=== PATIENT | female | born 1935 | race Caucasian/White ===

== ENCOUNTER 2018-08-20 14:14 | Emergency (ER) | payer MEDICARE ==
[~2018-08-20] VITALS: Ht 167.6 cm; Wt 50.3 kg
== END 2018-08-20 16:02 | disposition home or self-care (01) ==
LOC: ED 14:14
DX: S41.112A Laceration without foreign body of left upper arm, initial encounter (principal); R03.0 Elevated blood-pressure reading, without diagnosis of hypertension; W19.XXXA Unspecified fall, initial encounter; Y93.89 Activity, other specified; Y92.009 Unspecified place in unspecified non-institutional (private) residence as the place of occurrence of the external cause; Y99.8 Other external cause status

== ENCOUNTER → 2018-09-01 | Outpatient (CLI) | payer MEDICARE | END | disposition home or self-care (01) | LOC: WOUNDCARE 14:26 | DX: S41.112D Laceration without foreign body of left upper arm, subsequent encounter (principal); I10 Essential (primary) hypertension; E78.00 Pure hypercholesterolemia, unspecified; E07.9 Disorder of thyroid, unspecified; F32.9 Major depressive disorder, single episode, unspecified; F03.90 Unspecified dementia, unspecified severity, without behavioral disturbance, psychotic disturbance, mood disturbance, and anxiety; Z87.891 Personal history of nicotine dependence; W19.XXXD Unspecified fall, subsequent encounter ==

== ENCOUNTER 2018-10-14 12:49 | Emergency (ER) | payer MEDICARE ==
[~2018-10-14] VITALS: Ht 162.5 cm; Wt 56.7 kg
[2018-10-14] MEDS ORDERED: SIMVASTATIN40 MG PO (13:11)
[2018-10-14] MEDS ORDERED: SERTRALINE HYDR50 MG PO (13:11)
[2018-10-14] MEDS ORDERED: DONEPEZIL HCL10 MG PO (13:11)
[2018-10-14] MEDS ORDERED: LISINOPRIL5 MG PO (13:11)
[2018-10-14] MEDS ORDERED: LEVO-T25 MCG PO (13:12)
[2018-10-14] MEDS ORDERED: FOLGARD TABLET1 EACH PO (13:12)
[2018-10-14] MEDS ORDERED: L-LYSINE500 M2 PO (13:13)
[2018-10-14] MEDS ORDERED: POTASSIUM99 M5 PO (13:13)
== END 2018-10-14 18:20 | disposition short-term general hospital (02) ==
LOC: ED 12:49
DX: S72.001A Fracture of unspecified part of neck of right femur, initial encounter for closed fracture (principal); M25.511 Pain in right shoulder; R11.0 Nausea; Z79.899 Other long term (current) drug therapy; W18.39XA Other fall on same level, initial encounter; Y93.89 Activity, other specified; Y92.098 Other place in other non-institutional residence as the place of occurrence of the external cause; Y99.8 Other external cause status

== ENCOUNTER 2018-11-07 10:41 | Emergency (ER) | payer MEDICARE ==
--- NOTE | ~2018-11-07 | EKG ---
[place], [place] ELECTROCARDIOGRAM REPORT NAME: TELLO CARPENTER UNIT #: [id number] ROOM: DOCTOR: DARRELL DRAFT REPORT BIRTHDATE: [birth year] [facility] Test Date: 2018-11-07 Test Time: 12:59:53 Pat Name: TELLO CARPENTER Department: Room: Gender: F Trim Carpenter: EKG.OR : 1935 Requested By: SHEBA WYNN Order Number: [id number] Reading MD: Measurements Intervals [place] Rate: 57 P: 67 [place]: 152 QRS: -27 QRSD: 98 T: 156 QT: 539 QTc: 525 Interpretive Statements Sinus rhythm Borderline left axis deviation Abnrm T, probable ischemia, anterolateral lds Prolonged QT interval Compared to ECG 10/23/2018 00:19:43 Prolonged QT interval now present T-wave abnormality no longer present Possible ischemia still present CM:EKGRPT:ELECTROCARDIOGRAM REPORT [id number] 1001 SHEBA RAMÍREZ DRAFT REPORT SHEBA ASTORGA
[~2018-11-07 10:41] MED LIST: ASPIRIN325 M2 PO; DONEPEZIL HCL10 MG PO; DOXYCYCLINE100 M3 PO; FOLGARD TABLET1 EACH PO; FUROSEMIDE20 M1 PO; Ipratropium Brom3 ML NEB; KLOR-CON M2020 ME1 PO; L-LYSINE500 M2 PO; LEVO-T25 MCG PO; LISINOPRIL5 MG PO; NORCO 5-325 TA1 EACH PO; OXYGEN NAS; POTASSIUM99 M5 PO; PREDNISONE5 MG PO; RISPERDAL0.25 MG PO; SERTRALINE HYDR50 MG PO; SIMVASTATIN40 MG PO; VITAMIN B1250 MCG PO; VITAMIN D31000 UNI1 PO; Zestril,Prinivi40 MG PO
[2018-11-07 13:03] LABS: BASO % 0.5 % (0.0-1.0); EOS # 0.1 10*3/uL (0.0-0.4); EOS % 1.6 % (1.0-4.0); HEMATOCRIT 31.9 % (37.0-47.0); HEMOGLOBIN 10.1 g/dl (12.0-16.0); LYMPH # 1.7 10*3/uL (1.3-4.4); LYMPH % 23.5 % (27.0-41.0); MEAN CELL VOLUME 87.4 fl (81.0-99.0); MEAN CORPUSCULAR HGB 27.7 pg (27.0-31.0); MEAN CORPUSCULAR HGB CONC 31.7 g/dl (33.0-37.0); MEAN PLATELET VOLUME 9.2 fl (9.6-12.3); MONO # 0.6 10*3/uL (0.1-1.0); MONO % 7.8 % (3.0-9.0); NEUT # 4.9 10*3/uL (2.3-7.9); NEUT % 66.3 % (47.0-73.0); PLATELET COUNT AUTOMATED 291 10*3/uL (130-400); RED BLOOD COUNT 3.65 10*6/uL (4.10-5.10); RED CELL DISTRI WIDTH 13.1 % (0-14.5); WHITE BLOOD COUNT 7.4 10*3/uL (4.8-10.8)
[2018-11-07 13:19] LABS: ALBUMIN 2.8 gm/dl (3.1-4.5); ALKALINE PHOSPHATASE 112 U/L (45-117); BUN 18 mg/dl (7-24); CHLORIDE 107 mmol/L (98-107); CREATININE 1.05 mg/dL (0.55-1.02); POTASSIUM 3.9 mmol/L (3.5-5.1); SGOT/AST 16 IU/L (3-35); SGPT/ALT 14 U/L (12-78); SODIUM 141 mmol/L (136-145); TOTAL PROTEIN 5.9 gm/dL (6.4-8.2)
[2018-11-07 13:25] LABS: ACT PARTIAL THROMBO TIME 21.9 SECONDS (20.8-31.5)
== END 2018-11-07 14:43 | disposition short-term general hospital (02) ==
LOC: ED 10:41
PROVIDERS: Physician Assistant
DX: S72.111A Displaced fracture of greater trochanter of right femur, initial encounter for closed fracture (principal); Z79.2 Long term (current) use of antibiotics; Z79.82 Long term (current) use of aspirin; Z79.899 Other long term (current) drug therapy; W18.39XA Other fall on same level, initial encounter; Y93.89 Activity, other specified; Y92.230 Patient room in hospital as the place of occurrence of the external cause; Y99.8 Other external cause status

== ENCOUNTER 2018-12-15 06:19 | Emergency (ER) | payer MEDICARE ==
[~2018-12-15] VITALS: Ht 167.6 cm; Wt 63.5 kg
== END 2018-12-15 07:20 | disposition home or self-care (01) ==
LOC: ED 06:19
DX: S70.01XA Contusion of right hip, initial encounter (principal); M79.605 Pain in left leg; J43.9 Emphysema, unspecified; E78.5 Hyperlipidemia, unspecified; I10 Essential (primary) hypertension; E03.9 Hypothyroidism, unspecified; Z79.899 Other long term (current) drug therapy; Z79.2 Long term (current) use of antibiotics; Z79.82 Long term (current) use of aspirin; W19.XXXA Unspecified fall, initial encounter; Y93.89 Activity, other specified; Y92.128 Other place in nursing home as the place of occurrence of the external cause; Y99.8 Other external cause status

== ENCOUNTER 2019-03-06 17:46 | Inpatient (IN) | payer MEDICARE ==
[~2019-03-06] VITALS: Ht 167.6 cm; Wt 45.8 kg
--- NOTE | ~2019-03-06 | CON ---
[place], [place] REPORT OF CONSULTATION [facility]ENTER [id number] UN[facility] #: [id number] ROOM: 525 DOCTOR: ZEN PHD ALDA BIRTHDATE: [birth year] DOS: 03/07/2019 HISTORY OF PRESENT ILLNESS: The patient is an 83-year-old female referred by the hospitalist with concerns for change in mental status. At the present time, the patient is on the 5th floor at [facility]. The patient is a poor historian. Her niece was present for the evaluation with the patient's permission and provided the patient's historical information. She lives in a retirement and is a . She had a son who 2 years ago. 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 She does not drink alcohol, smoke or use illegal drugs. PAST MEDICAL HISTORY: Blindness of right eye, dementia, depression, emphysema, right femoral neck fracture, greater trochanter fracture, healthcare-associated pneumonia, head contusion, hyperlipidemia, hypertension, hypertensive emergency, hypothyroidism, metabolic encephalopathy, severe protein-calorie malnutrition. MEDICATIONS: Systane, Lum[place], vitamin D, Zoloft, Aricept, Lovenox, Synthroid, Zocor, DuoNeb, Zofran, Tylenol, Rocephin, Restoril, [place]. MENTAL STATUS EXAMINATION: The patient was lying comfortably in bed, in no apparent distress. She is awake, alert and oriented to person and place only. She was pleasant and cooperative with the evaluation. Mood was stable and affect was appropriately wide ranging. There was no suicidal or homicidal ideation, plan or intent. Speech was within normal limits with respect to rhythm, rate, volume and tone. Expressive and receptive language were within normal limits conversationally. The patient appeared to be hard of hearing. She was confused and demonstrated significant short and long-term memory deficits. There was no evidence of current hallucinations or delusions. The patient's niece stated that she has noticed a dramatic improvement in the patient's mood and behavior since starting Rocephin for her UTI. She stated that the patient's behavior is much closer to baseline currently than it had been yesterday. She has not seen the patient to hallucinate at all today and believes that the UTI was responsible for her abrupt change in mental status. DIAGNOSES: Delirium, not otherwise specified; unspecified neurocognitive disorder; unspecified depressive disorder. PLAN: The patient's mental status appears to have improved dramatically since admission when she was hallucinating. The patient's niece states that this happens only when she has a UTI. Given the improvement in her mental status, following treatment for her UTI, she would not appear to benefit from treatment on the [facility] at this time and may be appropriate to be discharged her retirement once medically stable. Thank you very much for this consult. [place], [place] REPORT OF CONSULTATION NAME: TELLO CARPENTER Mg UNIT #: [id number] ROOM: [facility] DOCTOR: ZEN PHD ALDA BIRTHDATE: [birth year] Kristine Solis, PhD CM:CONSTR:REPORT OF CONSULTATION 1719 03/08/19 0520 interface
--- NOTE | ~2019-03-06 | EKG ---
[place], [place] ELECTROCARDIOGRAM REPORT NAME: TELLO CARPENTER UNIT #: [id number] ROOM: 525 DOCTOR: DARRELL DRAFT REPORT BIRTHDATE: [birth year] [facility] Test Date: 2019-03-06 Test Time: 18:10:48 Pat Name: TELLO CARPENTER Department: Room: 525 Gender: F Regroover: Marquita Abernathy : 1935 Requested By: MOLLY LAZCANO Order Number: [id number] Reading MD: Joy Aguilera Measurements Intervals [place] Rate: 73 P: 75 [place]: 161 QRS: -29 QRSD: 83 T: 47 QT: 413 QTc: 456 Interpretive Statements Sinus rhythm Borderline left axis deviation Compared to ECG 11/07/2018 12:59:53 Possible ischemia no longer present Prolonged QT interval no longer present Electronically Signed On 03-10-2019 5:47:44 PDT by Joy Aguilera CM:EKGRPT:ELECTROCARDIOGRAM REPORT [id number] MOLLY LAZCANO DO EPIPHANY DRAFT REPORT MOLLY LAZCANO DO
[2019-03-06 17:46] VITALS: BP 145/59
[2019-03-06 18:04] LABS: BILIRUBIN NEGATIVE (NEGATIVE); BLOOD 1+ (NEGATIVE); CLARITY CLEAR (CLEAR); COLOR YELLOW (YELLOW); GLUCOSE NEGATIVE (NEGATIVE); KETONE NEGATIVE (NEGATIVE); LEUKO ESTERASE 3+ (NEGATIVE); NITRITE NEGATIVE (NEGATIVE); SPECIFIC GRAVITY <= 1.005 (1.005-1.030); UROBILINOGEN 0.2 E.U./dl (0.2-1.0)
[2019-03-06 18:10] LABS: BACTERIA 2+; EPITHELIAL CELLS 15-20
[2019-03-06 18:11] LABS: WBC 31-40 wbc/hpf (0-5)
[2019-03-06 18:20] LABS: BASO % 0.4 % (0.0-1.0); EOS # 0.2 10*3/uL (0.0-0.4); HEMATOCRIT 33.7 % (37.0-47.0); HEMOGLOBIN 10.8 g/dl (12.0-16.0); LYMPH # 1.3 10*3/uL (1.3-4.4); LYMPH % 14.2 % (27.0-41.0); MEAN CELL VOLUME 87.3 fl (81.0-99.0); MEAN PLATELET VOLUME 8.9 fl (9.6-12.3); MONO # 0.8 10*3/uL (0.1-1.0); MONO % 8.7 % (3.0-9.0); NEUT # 6.7 10*3/uL (2.3-7.9); NEUT % 73.9 % (47.0-73.0); PLATELET COUNT AUTOMATED 401 10*3/uL (130-400); RED BLOOD COUNT 3.86 10*6/uL (4.10-5.10); RED CELL DISTRI WIDTH 14.3 % (0-14.5); WHITE BLOOD COUNT 9.1 10*3/uL (4.8-10.8)
[2019-03-06 18:32] LABS: ACT PARTIAL THROMBO TIME 25.1 SECONDS (20.8-31.5); INTERNATIONAL NORM RATIO 0.9 (2.0-3.5)
[2019-03-06 18:36] LABS: ALBUMIN 2.8 gm/dl (3.1-4.5); ALKALINE PHOSPHATASE 90 U/L (45-117); BUN 25 mg/dl (7-24); CHLORIDE 105 mmol/L (98-107); CREATININE 1.33 mg/dL (0.55-1.02); POTASSIUM 3.9 mmol/L (3.5-5.1); SGOT/AST 12 IU/L (3-35); SGPT/ALT 16 U/L (12-78); SODIUM 138 mmol/L (136-145); TOTAL PROTEIN 7.3 gm/dL (6.4-8.2)
[2019-03-06 18:44] LABS: TROPONIN I < 0.015 ng/ml (<0.045)
[2019-03-06 19:14] VITALS: BP 151/96
[2019-03-06 20:00] VITALS: BP 171/78
[2019-03-06 20:13] VITALS: BP 162/82
--- NOTE | 2019-03-06 20:20 | NUR ---
Time: 2019 A 83 year old FEMALE admitted to 5E under services of AMBERLY BAKER DO. Pt. arrived via bed from ER. Chief complaint: HALLUCINATIONS, ACUTE METABOLIC ENCEPHALOPATHY. FAUSTO ANAYA
[2019-03-06] MEDS ORDERED: ARTIFICIAL TEAR15 M9 OP (20:23)
[2019-03-06] MEDS ORDERED: BIMATOPROST2.5 ML OPH (20:24)
[2019-03-06] MEDS ORDERED: Ipratropium Brom3 ML INH (20:25)
[2019-03-06] MEDS ORDERED: DULCOLAX10 M1 R (20:25)
[2019-03-06] MEDS ORDERED: ALMACONE LIQUI355 ML PO (20:33)
[2019-03-06] MEDS ORDERED: NORCO 5-325 TA1 EACH PO (20:37)
[2019-03-06] MEDS ORDERED: APAP500 MG PO (20:39)
--- NOTE | 2019-03-06 21:50 | NUR ---
DR. SARGENT NOTIFIED PT'S MED REC IS UP TO DATE. ALSO NOTIFIED OF HIGH BP OF 162/82. NO NEW ORDERS GIVEN. WILL CONTINUE TO MONITOR PT
--- NOTE | 2019-03-06 22:02 | NUR ---
NOTIFIED DR. SARGENT OF PATIENTS POWER OF FLORICULTURE PROFESSOR WANTING TO CHANGE HER CODE STATUS TO DNR-CCA WITHOUT INTUBATION. DR. SARGENT STATED TO LEAVE HER A FULL CODE IN THE COMPUTER UNTIL A DOCTOR IS ABLE TO SIGN THE COMFORT CARE PAPER.
--- NOTE | 2019-03-06 23:57 | NUR ---
CONSULT CALLED TO [facility]. SPOKE TO ADRYAN EVANS. SHE STATES THEY HAVE NO OPEN BEDS AT THIS TIME, SHE WILL PASS ALONG IN THE MORNING.
[2019-03-07] VITALS: BP 145/80
[2019-03-07 06:36] LABS: BASO % 0.3 % (0.0-1.0); EOS # 0.2 10*3/uL (0.0-0.4); EOS % 1.8 % (1.0-4.0); HEMOGLOBIN 10.4 g/dl (12.0-16.0); LYMPH # 1.9 10*3/uL (1.3-4.4); LYMPH % 17.2 % (27.0-41.0); MEAN CELL VOLUME 86.5 fl (81.0-99.0); MEAN CORPUSCULAR HGB 28.1 pg (27.0-31.0); MEAN CORPUSCULAR HGB CONC 32.5 g/dl (33.0-37.0); MEAN PLATELET VOLUME 9.8 fl (9.6-12.3); MONO # 1.2 10*3/uL (0.1-1.0); MONO % 11.3 % (3.0-9.0); NEUT # 7.4 10*3/uL (2.3-7.9); NEUT % 68.6 % (47.0-73.0); PLATELET COUNT AUTOMATED 349 10*3/uL (130-400); RED CELL DISTRI WIDTH 14.1 % (0-14.5); WHITE BLOOD COUNT 10.8 10*3/uL (4.8-10.8)
[2019-03-07 07:19] LABS: ALBUMIN 2.5 gm/dl (3.1-4.5); ALKALINE PHOSPHATASE 78 U/L (45-117); BUN 18 mg/dl (7-24); CHLORIDE 111 mmol/L (98-107); CREATININE 1.01 mg/dL (0.55-1.02); PHOSPHOROUS 3.4 mg/dL (2.5-4.9); POTASSIUM 3.9 mmol/L (3.5-5.1); SGOT/AST 15 IU/L (3-35); SGPT/ALT 11 U/L (12-78); SODIUM 143 mmol/L (136-145); TOTAL PROTEIN 6.5 gm/dL (6.4-8.2)
[2019-03-07 08:00] VITALS: BP 150/85
[2019-03-07 08:05] LABS: VITAMIN D, 25-HYDROXY 42.9 ng/mL (30-100)
--- NOTE | 2019-03-07 08:41 | NUR ---
PT RESTING IN BED./ NO DISTRESS NOTED. WILL MONITOR
--- NOTE | 2019-03-07 09:48 | NUR ---
Patient comes from [facility] assisted [facility] and is ok to return when medically stable for discharge.
[2019-03-07 12:00] VITALS: BP 166/76
--- NOTE | 2019-03-07 12:30 | NUR ---
PT IS CURRENTLY AT [facility] AND CAN RETURN WHEN MEDICALLY STABLE. WILL CONTINUE TO FOLLOW.
--- NOTE | 2019-03-07 15:22 | NUR ---
pt sitting up eating lunch. niece at bedside will monitor
[2019-03-07 16:00] VITALS: BP 160/65
--- NOTE | 2019-03-07 19:30 | NUR ---
REPORT RECIEVED FROM LISANDRO Kelley RN. PT IS ASLEEP IN BED AT THIS TIME WITH NO OBVIOUS SIGNS OR SYMPTOMS OF PAIN OR DISCOMFORT. RESPIRATIONS ARE EASY AND NONLABORED. BED LOCKED AND IN THE LOWEST POSITION. CALL LIGHT IS WITHIN REACH. WILL CONTINUE TO MONITOR PT.
[2019-03-07 20:00] VITALS: BP 138/64
[2019-03-08] VITALS: BP 156/65
[2019-03-08 06:37] LABS: BASO % 0.3 % (0.0-1.0); EOS # 0.2 10*3/uL (0.0-0.4); HEMATOCRIT 32.4 % (37.0-47.0); LYMPH # 1.9 10*3/uL (1.3-4.4); LYMPH % 18.6 % (27.0-41.0); MEAN CELL VOLUME 89.5 fl (81.0-99.0); MEAN CORPUSCULAR HGB 27.6 pg (27.0-31.0); MEAN CORPUSCULAR HGB CONC 30.9 g/dl (33.0-37.0); MEAN PLATELET VOLUME 10.5 fl (9.6-12.3); MONO # 0.9 10*3/uL (0.1-1.0); MONO % 8.6 % (3.0-9.0); NEUT # 7.1 10*3/uL (2.3-7.9); NEUT % 69.6 % (47.0-73.0); PLATELET COUNT AUTOMATED 353 10*3/uL (130-400); RED BLOOD COUNT 3.62 10*6/uL (4.10-5.10); RED CELL DISTRI WIDTH 14.2 % (0-14.5); WHITE BLOOD COUNT 10.2 10*3/uL (4.8-10.8)
[2019-03-08 06:43] LABS: BUN 14 mg/dl (7-24); CHLORIDE 112 mmol/L (98-107); CREATININE 0.92 mg/dL (0.55-1.02); POTASSIUM 3.4 mmol/L (3.5-5.1); SODIUM 143 mmol/L (136-145)
--- NOTE | 2019-03-08 07:41 | NUR ---
PT RESTING IN BED. NO DISTRESS NOTED. WILL MONITOR
[2019-03-08 08:00] VITALS: BP 164/71
[2019-03-08 12:00] VITALS: BP 164/76
--- NOTE | 2019-03-08 13:37 | NUR ---
MEDICATED WITH TYLENOL PER PRN ORDER FOR COMPLAINTS OF HEADACHE. WILL MONITOR FOR EFFECTIVENESS.
[2019-03-08 16:00] VITALS: BP 170/74
--- NOTE | 2019-03-08 19:30 | NUR ---
REPORT RECIEVED FROM ADRYAN MCMAHON. PT IS ASLEEP IN BED AT THIS TIME WITH NO S/S OF PAIN OR DISCOMFORT. RESPIRATIONS ARE EASY AND NONLABORED. BED LOCKED AND IN THE LOWEST POSITION, CALL LIGHT IS WITHIN REACH. WILL CONTINUE TO MONITOR.
[2019-03-08 20:00] VITALS: BP 168/80
--- NOTE | 2019-03-08 21:30 | NUR ---
DR. MELENDEZ NOTIFIED OF HIGH BP'S. NO NEW ORDERS RECIEVED.
[2019-03-09] VITALS: BP 178/73
--- NOTE | 2019-03-09 01:30 | NUR ---
PT IS SEEN AT THIS TIME. PT IS RESTING IN BED COMFORTABLY. PT DID NOT AWAKEN WHEN I ENTERED THE ROOM. NO SIGNS OF DISTRESS OR SHORTNESS OF BREATH NOTED AT THIS TIME. BED IN LOWEST LOCKED POSITION AND CALL LIGHT WITHIN REACH.
[2019-03-09 06:07] LABS: BASO % 0.4 % (0.0-1.0); EOS # 0.2 10*3/uL (0.0-0.4); EOS % 1.6 % (1.0-4.0); HEMATOCRIT 34.6 % (37.0-47.0); HEMOGLOBIN 10.9 g/dl (12.0-16.0); LYMPH % 17.6 % (27.0-41.0); MEAN CELL VOLUME 88.3 fl (81.0-99.0); MEAN CORPUSCULAR HGB 27.8 pg (27.0-31.0); MEAN CORPUSCULAR HGB CONC 31.5 g/dl (33.0-37.0); MEAN PLATELET VOLUME 8.9 fl (9.6-12.3); MONO # 0.8 10*3/uL (0.1-1.0); MONO % 7.2 % (3.0-9.0); NEUT # 8.1 10*3/uL (2.3-7.9); NEUT % 72.5 % (47.0-73.0); PLATELET COUNT AUTOMATED 426 10*3/uL (130-400); RED BLOOD COUNT 3.92 10*6/uL (4.10-5.10); RED CELL DISTRI WIDTH 14.1 % (0-14.5); WHITE BLOOD COUNT 11.2 10*3/uL (4.8-10.8)
[2019-03-09 06:28] LABS: BUN 12 mg/dl (7-24); CHLORIDE 114 mmol/L (98-107); POTASSIUM 3.8 mmol/L (3.5-5.1); SODIUM 146 mmol/L (136-145)
[2019-03-09 06:30] LABS: CREATININE 0.79 mg/dL (0.55-1.02)
[2019-03-09 08:00] VITALS: BP 166/70
--- NOTE | 2019-03-09 10:00 | NUR ---
DR MCINTOSH MADE AWARE OF PT'S TRENDING ELEVATED BP'S.
--- NOTE | 2019-03-09 11:16 | NUR ---
UPDATES FAXED TO JACQUIE AT [employer].
[2019-03-09] MEDS ORDERED: CIPRO500 MG PO (11:59)
--- NOTE | 2019-03-09 13:05 | NUR ---
[facility] WILL TRANSPORT PT TO [facility] SUITES BETWEEN 2-230. 5E WARDCLERK NOTIFIED. AIMEE GALEAS NOK LISTED NOTIFIED.
--- NOTE | 2019-03-09 14:01 | NUR ---
NURSE TO NURSE REPORT GIVEN TO BABR AT [facility].
--- NOTE | 2019-03-09 14:04 | NUR ---
Discharge instructions reviewed with patient/family. Patient receptive and verbalizes understanding. Follow-up care arranged. Written instructions given to patient/family. IV site removed. Pt transported via [facility] ambulance. REYNA ROBERSON
== END 2019-03-09 14:10 | disposition home or self-care (01) | DRG 682 ==
LOC: ED 17:46 → EDHOLD 18:49 → 5E 18:49
PROVIDERS: Internal Medicine; Student in an Organized Health Care Education/Training Program; ADMIT Emergency Medicine
DX: N17.0 Acute kidney failure with tubular necrosis (principal); G93.41 Metabolic encephalopathy; E43 Unspecified severe protein-calorie malnutrition; N30.01 Acute cystitis with hematuria; R44.3 Hallucinations, unspecified; Z68.1 Body mass index [BMI] 19.9 or less, adult; D64.9 Anemia, unspecified; B96.20 Unspecified Escherichia coli [E. coli] as the cause of diseases classified elsewhere; Z66 Do not resuscitate; Z51.5 Encounter for palliative care; J43.9 Emphysema, unspecified; D47.3 Essential (hemorrhagic) thrombocythemia; E87.8 Other disorders of electrolyte and fluid balance, not elsewhere classified; F03.90 Unspecified dementia, unspecified severity, without behavioral disturbance, psychotic disturbance, mood disturbance, and anxiety; E03.9 Hypothyroidism, unspecified; E78.5 Hyperlipidemia, unspecified; I10 Essential (primary) hypertension; F32.5 Major depressive disorder, single episode, in full remission; H54.61 Unqualified visual loss, right eye, normal vision left eye; Z87.01 Personal history of pneumonia (recurrent); Z79.899 Other long term (current) drug therapy

== ENCOUNTER 2019-08-15 13:34 | Emergency (ER) | payer MEDICARE ==
[~2019-08-15] VITALS: Ht 165.1 cm; Wt 49.9 kg
[~2019-08-15 13:34] MED LIST changes: +ALMACONE LIQUI355 ML PO; +APAP500 MG PO; +ARTIFICIAL TEAR15 M9 OP; +BIMATOPROST2.5 ML OPH; +CIPRO500 MG PO; +DULCOLAX10 M1 R; +Ipratropium Brom3 ML INH
[2019-08-15 17:08] LABS: BASO % 0.4 % (0.0-1.0); EOS # 0.1 10*3/uL (0.0-0.4); EOS % 1.4 % (1.0-4.0); HEMATOCRIT 40.5 % (37.0-47.0); HEMOGLOBIN 13.1 g/dl (12.0-16.0); LYMPH # 2.1 10*3/uL (1.3-4.4); LYMPH % 29.6 % (27.0-41.0); MEAN CORPUSCULAR HGB 28.5 pg (27.0-31.0); MEAN CORPUSCULAR HGB CONC 32.3 g/dl (33.0-37.0); MEAN PLATELET VOLUME 9.2 fl (9.6-12.3); MONO # 0.6 10*3/uL (0.1-1.0); NEUT # 4.2 10*3/uL (2.3-7.9); NEUT % 59.3 % (47.0-73.0); PLATELET COUNT AUTOMATED 239 10*3/uL (130-400); RED CELL DISTRI WIDTH 12.9 % (0-14.5)
[2019-08-15 17:19] LABS: ACT PARTIAL THROMBO TIME 25.2 SECONDS (20.0-32.1); INTERNATIONAL NORM RATIO 0.9 (2.0-3.5)
[2019-08-15 17:23] LABS: ALBUMIN 3.4 gm/dl (3.1-4.5); CREATININE 1.35 mg/dL (0.55-1.02); POTASSIUM 3.8 mmol/L (3.5-5.1)
== END 2019-08-15 18:56 | disposition short-term general hospital (02) ==
LOC: ED 13:34
PROVIDERS: Nurse Practitioner Family
DX: S72.111A Displaced fracture of greater trochanter of right femur, initial encounter for closed fracture (principal); E78.00 Pure hypercholesterolemia, unspecified; E78.5 Hyperlipidemia, unspecified; I10 Essential (primary) hypertension; E03.9 Hypothyroidism, unspecified; F03.90 Unspecified dementia, unspecified severity, without behavioral disturbance, psychotic disturbance, mood disturbance, and anxiety; Z98.890 Other specified postprocedural states; Z79.899 Other long term (current) drug therapy; Z96.641 Presence of right artificial hip joint; W18.30XA Fall on same level, unspecified, initial encounter; Y93.89 Activity, other specified; Y92.89 Other specified places as the place of occurrence of the external cause; Y99.9 Unspecified external cause status

== ENCOUNTER 2019-10-02 11:11 | Inpatient (IN) | payer MEDICARE ==
[~2019-10-02] VITALS: Ht 165.1 cm; Wt 56.9 kg
[2019-10-02 11:15] VITALS: BP 129/85
[2019-10-02 11:47] LABS: BASO % 0.3 % (0.0-1.0); EOS % 0.2 % (1.0-4.0); HEMATOCRIT 43.5 % (37.0-47.0); HEMOGLOBIN 14.2 g/dl (12.0-16.0); LYMPH # 1.4 10*3/uL (1.3-4.4); LYMPH % 12.1 % (27.0-41.0); MEAN CELL VOLUME 87.5 fl (81.0-99.0); MEAN CORPUSCULAR HGB 28.6 pg (27.0-31.0); MEAN CORPUSCULAR HGB CONC 32.6 g/dl (33.0-37.0); MEAN PLATELET VOLUME 9.3 fl (9.6-12.3); MONO # 0.8 10*3/uL (0.1-1.0); MONO % 6.6 % (3.0-9.0); NEUT # 9.3 10*3/uL (2.3-7.9); NEUT % 80.5 % (47.0-73.0); PLATELET COUNT AUTOMATED 278 10*3/uL (130-400); RED BLOOD COUNT 4.97 10*6/uL (4.10-5.10); RED CELL DISTRI WIDTH 12.8 % (0-14.5); WHITE BLOOD COUNT 11.6 10*3/uL (4.8-10.8)
[2019-10-02 11:58] LABS: ACT PARTIAL THROMBO TIME 24.3 SECONDS (20.0-32.1)
[2019-10-02 12:05] LABS: CREATININE 1.75 mg/dL (0.55-1.02); POTASSIUM 4.1 mmol/L (3.5-5.1); TOTAL PROTEIN 7.9 gm/dL (6.4-8.2)
[2019-10-02 12:14] LABS: TROPONIN I 0.065 ng/ml (<0.045)
[2019-10-02 12:24] LABS: THYROID STIM HORMONE (HS) 0.855 uIU/ml (0.358-4.75)
[2019-10-02 12:47] LABS: BILIRUBIN 2+ (NEGATIVE); BLOOD 2+ (NEGATIVE); CLARITY SL CLOUDY (CLEAR); COLOR YELLOW (YELLOW); GLUCOSE NEGATIVE (NEGATIVE); KETONE TRACE (NEGATIVE); LEUKO ESTERASE NEGATIVE (NEGATIVE); NITRITE NEGATIVE (NEGATIVE); PH 5.5 (5.0-9.0); SPECIFIC GRAVITY >= 1.030 (1.005-1.030); UROBILINOGEN 0.2 E.U./dl (0.2-1.0)
[2019-10-02 12:58] LABS: URINE AMPHETAMINES < 1000 (1000ng/ml); URINE BARBITURATES < 200 (200ng/ml); URINE BENZODIAZEPINES < 200 (200ng/ml); URINE CANNABINOIDS (THC) < 50 (50ng/ml); URINE COCAINE < 300 (300ng/ml); URINE METHADONE < 300 (300ng/ml); URINE OPIATES < 300 (300ng/ml)
[2019-10-02 12:59] LABS: BACTERIA 3+; MUCOUS 1+
[2019-10-02 13:02] LABS: URINE PHENCYCLIDINE < 25 (25ng/ml)
[2019-10-02 13:10] VITALS: BP 156/84
--- NOTE | 2019-10-02 13:25 | NUR ---
A 84, admitted to , under the services of MAUDE Vieira DO with a diagnosis of SEDA AND CONFUSION. Chief complaint is CONFUSION AND HALLUCINATIONS PER [facility]. Patient arrived via stretcher from ER. Monitor applied. Initial assessment completed. Vital signs taken and recorded. MAUDE VIEIRA DO notified of admission to the unit. Orders received. See assessment for past medical history, medications and allergies. Patient and/or family oriented to unit. [facility] visitation policy reviewed. Clothing/patient valuable form completed. TAABTHA NEVAREZ
[2019-10-02 13:45] VITALS: BP 110/85
[2019-10-02] MEDS ORDERED: ASPIRIN ADULT L81 MG PO (14:33)
[2019-10-02] MEDS ORDERED: BUSPAR5 MG PO (14:34)
[2019-10-02] MEDS ORDERED: COMBIGAN 0.2%-0.5 ML OP (14:36)
[2019-10-02] MEDS ORDERED: HURRICAINE MM (14:39)
--- NOTE | 2019-10-02 14:42 | NUR ---
SPOKE WITH KOBI CRAIG, ABOUT PT'S MED REC BEING COMPLETED. CONTINUE TO MONITOR THE PT.
[2019-10-02 16:00] VITALS: BP 183/81
--- NOTE | 2019-10-02 18:15 | NUR ---
HALLUCINATING, SEEING DOGS, KIDS, AND SPIDERS. ATTEMPTED TO REORIENT
[2019-10-02 20:00] VITALS: BP 141/67
--- NOTE | 2019-10-02 20:07 | NUR ---
CONTEACTED DR. LELBANC AT [facility] REQUEST FOR SOMETHING TO SLEEP. THEY STATE SHE HAS BEEN UP FOR 2 DAYS AND IT IS MAKING THE HALLUCINATIONS WORSE. ORDER RECEIVED FOR RESTORIL 15 MG PO PRN HS.
--- NOTE | 2019-10-02 20:41 | NUR ---
PATIENT PLEASANTLY CONFUSED AND SEEING THINGS THAT ARE NOT THERE. BED ALARM ON FOR SAFETY. IV FLUIDS INFUSING PER ORDER. PRN RESTORIL GIVEN FOR INSOMNIA PER FAMILY. WILL MONITOR FOR EFFECTIVNESS.
--- NOTE | 2019-10-02 21:39 | NUR ---
PRN RESTORIL EFFECTIVE. PATIENT SLEEPING IN BED. RESPIRATIONS EVEN AND UNLABORED. BED ALARM ON FOR SAFETY.
--- NOTE | 2019-10-02 22:02 | NUR ---
24 HR chart check completed.
[2019-10-03] VITALS: BP 130/77; BP 160/72
--- NOTE | 2019-10-03 01:48 | NUR ---
PATIENT SLEEPING IN BED. RESPIRATIONS EVEN AND UNLABORED. BED ALARM ON FOR SAFETY. CALL LIGHT WITHIN REACH.
--- NOTE | 2019-10-03 03:00 | NUR ---
PATIENT ASSISTED TO THE RESTROOM AND BACK BY STAFF. HEART RATE INCREASED TO THE 120S WHILE AMBULATING. PATIENT GIVEN PRN TYLENOL FOR C/O HEADACHE. BED ALARM ON FOR SAFETY. CALL LIGHT WITHIN REACH.
--- NOTE | 2019-10-03 03:26 | NUR ---
PATIENT ASLEEP. PRN TYLENOL EFFECTIVE.
[2019-10-03 06:26] LABS: BASO % 0.5 % (0.0-1.0); EOS # 0.2 10*3/uL (0.0-0.4); EOS % 2.1 % (1.0-4.0); HEMATOCRIT 40.7 % (37.0-47.0); HEMOGLOBIN 12.8 g/dl (12.0-16.0); LYMPH # 2.3 10*3/uL (1.3-4.4); MEAN CELL VOLUME 89.5 fl (81.0-99.0); MEAN CORPUSCULAR HGB 28.1 pg (27.0-31.0); MEAN CORPUSCULAR HGB CONC 31.4 g/dl (33.0-37.0); MEAN PLATELET VOLUME 9.4 fl (9.6-12.3); NEUT # 5.1 10*3/uL (2.3-7.9); NEUT % 59.1 % (47.0-73.0); PLATELET COUNT AUTOMATED 246 10*3/uL (130-400); RED BLOOD COUNT 4.55 10*6/uL (4.10-5.10); RED CELL DISTRI WIDTH 12.9 % (0-14.5); WHITE BLOOD COUNT 8.6 10*3/uL (4.8-10.8)
[2019-10-03 06:42] LABS: ALBUMIN 3.2 gm/dl (3.1-4.5); CREATININE 1.08 mg/dL (0.55-1.02); PHOSPHOROUS 3.9 mg/dL (2.5-4.9); POTASSIUM 3.7 mmol/L (3.5-5.1)
[2019-10-03 06:45] LABS: TOTAL PROTEIN 6.5 gm/dL (6.4-8.2)
--- NOTE | 2019-10-03 08:14 | NUR ---
PHYSICAL THERAPY Screen received as well as orders for Physical Therapy, will follow thank you. Bertha Pedro PT
--- NOTE | 2019-10-03 08:17 | NUR ---
Nursing screen received and Occupational Therapy referral received. Thank you. Navneet Mobley OTR/l
--- NOTE | 2019-10-03 09:48 | NUR ---
Confirmed with [facility], patient came in from their assisted living.
[2019-10-03 10:20] VITALS: BP 145/57
--- NOTE | 2019-10-03 11:49 | NUR ---
Patient not available for Occupational Therapy evaluation per nursing as patient is fatigued and has been refusing everything. OTR will attempt at a later time. Shelbi Mobley OTR/L
[2019-10-03 12:00] VITALS: BP 127/77
--- NOTE | 2019-10-03 12:14 | NUR ---
PHYSICAL THERAPY Attempted to see pt for evaluation per nursing pt with increased agitation/confusion to defer therapy at this time will follow. Bertha Pedro PT
[2019-10-03 16:00] VITALS: BP 149/53
--- NOTE | 2019-10-03 19:05 | NUR ---
ARRIVED ON SHIFT, INTRODUCED TO PATIENT, WHITE BOARD UPDATED, NO NEEDS VOICED AT THIS TIME.
[2019-10-03 20:00] VITALS: BP 142/63
[2019-10-04] VITALS: BP 128/70
--- NOTE | 2019-10-04 04:00 | NUR ---
PATIENT REMOVED TELEMETRY UNITS MULTIPLE TIMES, SPOKE WITH DR MCINTOSH, HER ADVISED TO TRY ONE MORE TIME WHICH WAS DONE, PATIENT AGAIN REMOVED TELEMETRY, DR. MCINTOSH AWARE.
--- NOTE | 2019-10-04 07:23 | NUR ---
PLACED INTO CONTACT ISOLATION FOR +ESBL OF URINE.
--- NOTE | 2019-10-04 07:46 | NUR ---
URINE RESISTANT TO ROCEPHIN WHICH IS CURRENTLY ORDERED. CALLED [facility] TO INFORM. SAID SHE WOULD LOOK AT THIS SENSITIVITY LIST.
[2019-10-04 08:00] VITALS: BP 150/85
--- NOTE | 2019-10-04 08:21 | NUR ---
Patient updated clinicals faxed to [facility] for review. Will fax physical therapy eval when patient is able to participate.
--- NOTE | 2019-10-04 09:00 | NUR ---
case management visits with patient, she will return to [facility] when medically stable, potential discharge for tomorrow
--- NOTE | 2019-10-04 10:01 | NUR ---
Patient from [facility]; contacted Jada and explained patient has a UTI and since taking IV ATB patient's confusion is clearing. Patient should discharge either tomorrow or . Patient is ok to return to [facility] once medically stable for DC
--- NOTE | 2019-10-04 10:20 | NUR ---
Occupational Therapy evaluation completed on 4 with full eval to follow. Precautions include fall risk; bed alarm,impaired cognition;dementia, poor short term memory and orientation, low vision deficits with left eye blindness, moderate complexity level [id number]. Recommend OT per POC and SNF to acheive max level of function. Thank you. Shelbi Mobley OTR/l
--- NOTE | 2019-10-04 11:28 | NUR ---
PHYSICAL THERAPY Nkechial completed pt moderate level of [id number] recomend SNF at discharge PT to work on transfers, amb, strengthening, blance/safety. Bertha Pedro PT
[2019-10-04 12:00] VITALS: BP 158/60
--- NOTE | 2019-10-04 12:36 | NUR ---
Faxed clinical updates to Leann at [facility] suites. She stated patient is ok to return to [facility] under hospice services.
--- NOTE | 2019-10-04 14:00 | NUR ---
Called and spoke with LINCOLN Singh and discussed discharge plan. She told me that yesterday, [facility] moved her from Assisted Living to the [facility] unit and they are holding a bed for her. I mentioned that P.T. suggested snf for therapy. she said patient has not walked well since last year when she broke her hip twice and would rather have patient receive the therapy at [facility] 5 days per week. They were already scheduled when patient was admitted. Mali PEACE provided a script for physical and occupational therapy, faxed to [facility].
[2019-10-04 16:00] VITALS: BP 142/68
--- NOTE | 2019-10-04 17:46 | NUR ---
PT AGITATED WITH [facility] INFUSION STATING "SHE JUSTS WANTS TO SLEEP."
[2019-10-04 20:00] VITALS: BP 132/63
--- NOTE | 2019-10-04 20:43 | NUR ---
Neurological: AAOX3: PLEASANT, COOPERATIVE, BLIND LEFT EYE Respiratory: ROOM AIR, NONLABORED Breath sounds: DIMINISHED Cough: NONE NOTED Cardiovascular: DENIES CP/PRESSURE, NO EDEMA, PPP Gastrointestinal: NORMOACTIVE X4 QUADS, DENIES N/V/D/C, SOFT/NONTENDER/NONDISTENDED Genito/Urinary: DENIES DYSURIA Musculoskeketal: AMBULATORY WITH ASSIST, SKIN INTACT PATIENT IS RESTING IN BED WITH NO C/O OR S/S OF DISTRESS NOTED AT THIS TIME, BED IS LOW, LOCKED, ALARMED, AND CALL LIGHT IS WITHIN REACH. WILL CONTINUE TO MONITOR, SEE SHIFT ASSESSMENT. NIKOLAI BRAVO A
[2019-10-05] VITALS: BP 151/68
--- NOTE | 2019-10-05 05:45 | NUR ---
DR. LEBLANC CONTACTED IN REGARDS TO PATIENT C/O RIGHT LEG PAIN, ON ASSESSMENT RIGHT LEG IS WARM AND SWOLLEN. STAT ULTRASOUND ORDERED.
--- NOTE | 2019-10-05 06:46 | NUR ---
PATIENT OFF FLOOR TO ULTRASOUND.
--- NOTE | 2019-10-05 07:00 | NUR ---
PATIENT RETURNED FROM ULTRASOUND.
[2019-10-05 08:00] VITALS: BP 150/61
--- NOTE | 2019-10-05 08:16 | NUR ---
Contacted Jada at [facility] to notify patient has ESBL in urine and must have a private room. Jada stated all rooms are private, patient is ok to return.
--- NOTE | 2019-10-05 09:00 | NUR ---
case management visits with patient, she will be discharged to [facility] today,
[2019-10-05] MEDS ORDERED: AUGMENTIN 875875 MG PO (09:15)
--- NOTE | 2019-10-05 09:20 | NUR ---
OT NOTE Pt was seen this A.M. 1:1 for 25 minute OT session. Upon arrival pt was supine in bed. Pt identified by name and and had no complaints at this time. Pt presented to therapy with increased confusion as indicated by repeating the same questions over and over and being dioriented to place or time. Pt transferred supine to sit EOB with Cindy for assist with UB. While sitting EOB challenged pt's dynamic sitting balance needed for increased I and enhanced safety. While weight shifting, crossing midline, and reaching over all planes pt was able to maintain F+ sitting balance throughout. Sit to stand completed from bed level with Cindy and use of w/w for UE support. Functional mobility was then completed to the bathroom with Cindy and use of w/w requiring assist for walker navigation and correcting occasional LOB due to B knees having slight buckle. There she transferred on/off standard commode with Cindy for assist with safety with alignment and transferring off low surface. Pt then stood sink side while washing her hands with modA for assist with sequencing and correcting retrograde posture. Functional mobility then completed back to the EOB where she transferred sit to supine with SBA. There she was left with call light in hand, tray table in place, and bed alarm activated for safety. Continue with rec D/ Cplan to SNF. MEAGHAN Bourgeois/Syed
[2019-10-05 10:03] LABS: BASO % 0.5 % (0.0-1.0); EOS # 0.2 10*3/uL (0.0-0.4); EOS % 2.6 % (1.0-4.0); HEMATOCRIT 38.6 % (37.0-47.0); HEMOGLOBIN 12.3 g/dl (12.0-16.0); LYMPH # 1.3 10*3/uL (1.3-4.4); LYMPH % 21.1 % (27.0-41.0); MEAN CORPUSCULAR HGB 28.7 pg (27.0-31.0); MEAN CORPUSCULAR HGB CONC 31.9 g/dl (33.0-37.0); MEAN PLATELET VOLUME 9.6 fl (9.6-12.3); MONO # 0.5 10*3/uL (0.1-1.0); MONO % 7.2 % (3.0-9.0); NEUT # 4.3 10*3/uL (2.3-7.9); NEUT % 68.3 % (47.0-73.0); PLATELET COUNT AUTOMATED 221 10*3/uL (130-400); RED BLOOD COUNT 4.29 10*6/uL (4.10-5.10); RED CELL DISTRI WIDTH 12.7 % (0-14.5); WHITE BLOOD COUNT 6.3 10*3/uL (4.8-10.8)
--- NOTE | 2019-10-05 10:18 | NUR ---
PHYSICAL THERAPY Patient presented to therapy in supine with head of bed elevated and demonstrating some confusion at this time. Patient's bed alarm is on. Patient was identified by name and on wristband. Patient gives informed consent for treatment. Patient transferred supine to sitting at EOB with SBA. Patient sit to stand from EOB with CGA X 1. PATIENT REQUIRED VERBAL CUES FOR PROPER HAND PLACEMENT AND pushing off bed with one hand. Patient stood at Walker for 1 minute x 1 and then 30 seconds the second standing tolerance with verbal cues for locking knees into extension and upright posture. Patient required CGA X 2 during both standing tolerances. Patient ambulated from EOB into restroom, which was about 20' x 1 with Wh Walker and then after a seated rest break in low chair, she stood STS out of low chair with MIN A X 1. Patient ambulated back to EOB 20' x 1 with CGA X 1 and verbal cues for upright posture, pushing down on walker with hands, and locking knees into extension. Patient transferred back to supine in bed with SBA. Patient was left in supine in bed with head of bed elevated, call light within reach and bed alarm activated. Patient was able to sit up and scoot herself up to head of bed herself with SBA. Patient was 1:1 with this MAINTENANCE SHOP MANAGER for 20 minutes total. RUBIN BAIRD MAINTENANCE SHOP MANAGER
[2019-10-05 10:22] LABS: ALBUMIN 3.2 gm/dl (3.1-4.5); CREATININE 1.3 mg/dL (0.55-1.02); POTASSIUM 3.4 mmol/L (3.5-5.1); TOTAL PROTEIN 6.3 gm/dL (6.4-8.2)
--- NOTE | 2019-10-05 10:50 | NUR ---
Patient is discharged to [facility]. Faxed all scripts and discharge information. Nursing/wardrobe consultant aware daughter is transporting around 11 AM
--- NOTE | 2019-10-05 10:59 | NUR ---
PT TRANSPORTED TO [facility] AT THIS TIME BY HER ALMA DELIA. PACKET GIVEN TO ALMA DELIA TO TAKE THERE TO GIVE TO NURSE. SAMANTHA DESAI.
--- NOTE | 2019-10-06 07:59 | NUR ---
PHYSICAL THERAPY CO-SIGN I approve of the Physical Therapy notes written above. Bertha Pedro PT
== END 2019-10-05 10:59 | disposition home or self-care (01) | DRG 70 ==
LOC: ED 11:11 → EDHOLD 12:41 → 4E 12:41 → 5E 10-04 14:51
PROVIDERS: Emergency Medicine; Registered Nurse; ADMIT Internal Medicine
DX: G93.41 Metabolic encephalopathy (principal); N17.0 Acute kidney failure with tubular necrosis; N30.01 Acute cystitis with hematuria; I24.8 Other forms of acute ischemic heart disease; E87.2 Acidosis; R44.3 Hallucinations, unspecified; Z66 Do not resuscitate; Z51.5 Encounter for palliative care; J43.9 Emphysema, unspecified; Z96.641 Presence of right artificial hip joint; B96.1 Klebsiella pneumoniae [K. pneumoniae] as the cause of diseases classified elsewhere; E03.9 Hypothyroidism, unspecified; E78.2 Mixed hyperlipidemia; I12.9 Hypertensive chronic kidney disease with stage 1 through stage 4 chronic kidney disease, or unspecified chronic kidney disease; F32.9 Major depressive disorder, single episode, unspecified; F03.90 Unspecified dementia, unspecified severity, without behavioral disturbance, psychotic disturbance, mood disturbance, and anxiety; N18.3 Chronic kidney disease, stage 3 (moderate); Z99.3 Dependence on wheelchair; Z87.01 Personal history of pneumonia (recurrent); Z87.440 Personal history of urinary (tract) infections; Z82.49 Family history of ischemic heart disease and other diseases of the circulatory system; Z82.69 Family history of other diseases of the musculoskeletal system and connective tissue; Z79.82 Long term (current) use of aspirin; Z79.899 Other long term (current) drug therapy

== ENCOUNTER 2019-11-08 22:13 | Emergency (ER) | payer MEDICARE ==
[~2019-11-08] VITALS: Ht 165.1 cm; Wt 55.3 kg
[~2019-11-08 22:13] MED LIST changes: +ASPIRIN ADULT L81 MG PO; +AUGMENTIN 875875 MG PO; +BIMATOPROST2.5 ML OD; -BIMATOPROST2.5 ML OPH; +BUSPAR5 MG PO; +COMBIGAN 0.2%-0.5 ML OD; +HURRICAINE MM
[2019-11-08 22:51] LABS: BASO % 0.4 % (0.0-1.0); EOS # 0.1 10*3/uL (0.0-0.4); EOS % 1.3 % (1.0-4.0); HEMATOCRIT 41.1 % (37.0-47.0); HEMOGLOBIN 13.3 g/dl (12.0-16.0); LYMPH # 1.9 10*3/uL (1.3-4.4); LYMPH % 21.1 % (27.0-41.0); MEAN CELL VOLUME 89.5 fl (81.0-99.0); MEAN CORPUSCULAR HGB CONC 32.4 g/dl (33.0-37.0); MEAN PLATELET VOLUME 9.8 fl (9.6-12.3); MONO # 0.6 10*3/uL (0.1-1.0); MONO % 7.1 % (3.0-9.0); NEUT # 6.2 10*3/uL (2.3-7.9); NEUT % 69.8 % (47.0-73.0); PLATELET COUNT AUTOMATED 227 10*3/uL (130-400); RED BLOOD COUNT 4.59 10*6/uL (4.10-5.10); RED CELL DISTRI WIDTH 12.6 % (0-14.5)
[2019-11-08 23:20] LABS: ALBUMIN 3.8 gm/dl (3.1-4.5); ALKALINE PHOSPHATASE 80 U/L (45-117); BUN 22 mg/dl (7-24); CHLORIDE 108 mmol/L (98-107); CREATININE 1.28 mg/dL (0.55-1.02); POTASSIUM 3.8 mmol/L (3.5-5.1); SGOT/AST 18 IU/L (3-35); SGPT/ALT 17 U/L (12-78); SODIUM 139 mmol/L (136-145); TOTAL PROTEIN 7.2 gm/dL (6.4-8.2)
[2019-11-08 23:27] LABS: ACETAMINOPHEN (TYLENOL) < 5.0 ug/ml (10-30)
[2019-11-08 23:28] LABS: THYROID STIM HORMONE (HS) 0.357 uIU/ml (0.358-4.75)
[2019-11-08 23:29] LABS: ETHYL ALCOHOL < 3.0 mg/dl (<3)
[2019-11-09 00:29] LABS: URINE AMPHETAMINES < 1000 (1000ng/ml); URINE BARBITURATES < 200 (200ng/ml); URINE BENZODIAZEPINES > 200 (200ng/ml); URINE CANNABINOIDS (THC) < 50 (50ng/ml); URINE COCAINE < 300 (300ng/ml); URINE METHADONE < 300 (300ng/ml); URINE OPIATES < 300 (300ng/ml)
[2019-11-09 00:43] LABS: BILIRUBIN NEGATIVE (NEGATIVE); BLOOD 2+ (NEGATIVE); CLARITY CLEAR (CLEAR); COLOR YELLOW (YELLOW); GLUCOSE NEGATIVE (NEGATIVE); KETONE NEGATIVE (NEGATIVE); LEUKO ESTERASE NEGATIVE (NEGATIVE); NITRITE NEGATIVE (NEGATIVE); PH 5.5 (5.0-9.0); URINE PHENCYCLIDINE < 25 (25ng/ml); UROBILINOGEN 0.2 E.U./dl (0.2-1.0)
[2019-11-09 01:12] LABS: BACTERIA 1+; WBC 0-2 wbc/hpf (0-5)
[2019-11-09] MEDS ORDERED: EFFEXOR-XR75 MG PO (16:02)
== END 2019-11-09 15:10 | disposition home health service (06) ==
LOC: ED 22:13
PROVIDERS: Emergency Medicine
DX: F63.81 Intermittent explosive disorder (principal); E03.9 Hypothyroidism, unspecified; I12.9 Hypertensive chronic kidney disease with stage 1 through stage 4 chronic kidney disease, or unspecified chronic kidney disease; N18.3 Chronic kidney disease, stage 3 (moderate); E78.00 Pure hypercholesterolemia, unspecified; F03.90 Unspecified dementia, unspecified severity, without behavioral disturbance, psychotic disturbance, mood disturbance, and anxiety; Z79.82 Long term (current) use of aspirin; Z79.899 Other long term (current) drug therapy

== ENCOUNTER 2019-11-09 14:32 | Inpatient (IN) | payer MEDICARE ==
[~2019-11-09] VITALS: Ht 165.1 cm; Wt 55.3 kg
--- NOTE | 2019-11-09 15:15 | NUR ---
TELLO CARPENTER a 84 year old F admitted via wheel chair from the [facility] EMERGENCY ROOM as a voluntary BY [facility] admission. Arrived on unit at 1515. ALLERGIES: NKDA. Vital signs are: 97.0-72-17 129/53. 97% ROOM AIR The following consents were obtained from and discussed with the [facility] prior to admission: Authorization For The Release of Medical Information, Clothing List, Consent to Voluntary Admission and Hospitalization, Consent and Release Forms/Receipt of Rights, Acknowledgement of Advance Directive Information, Behavioral Health Consent Form, and Informed Consent of Medications. Admitted under the services of Dr. AMADA GARRETTSHELBY. A search was conducted and hazardous articles were removed. Client was oriented to the unit. SLAVA OCHOA
[2019-11-09 15:33] VITALS: BP 129/53
[2019-11-09] MEDS ORDERED: EFFEXOR-XR75 MG PO (16:02)
--- NOTE | 2019-11-09 16:08 | NUR ---
NOTIFIED OF CONSULT FOR MEDICAL MANAGEMENT.
--- NOTE | 2019-11-09 16:25 | NUR ---
ON UNIT TO SEE PT AT THIS TIME.
--- NOTE | 2019-11-09 17:45 | NUR ---
PT IS ALERT AND ORIENTED TO PERSON ONLY. CONFUSION NOTED. RESPS EASY AND EVEN ON ROOM AIR. MOOD APPEARS OVERWHELMINGLY DEPRESSED WITH SAD AFFECT. SPEECH IS SOFT, COHERENT, ABLE TO MAKE NEEDS KNOWN WITHOUT DIFFICULTY. PT COOPERATIVE WITH ADMISSION ASSESSMENT. SKIN CHECK COMPLETED WITH BRUISING NOTED TO EXTERMITIES, LARGE DARK COLORED BRUISE NOTED TO RIGHT HAND AND WRIST. THROUGHOUT ADMISSION PROCESS PT HAS MADE SEVERAL NEGATIVE STATEMENTS TO MULTIPLE STAFF STATING "I WISH I COULD ", "I WANT GOD TO TAKE ME NOW". DURING INTERVIEW WITH THIS RN PT STATES "I WANT TO BUT GOD WON'T TAKE ME" IN REGARD TO SUICIDAL IDEATION PT STATES "IF I KNEW HOW TO DO IT, I WOULD. I DON'T KNOW HOW". PT STATES SHE WANTS TO BECAUSE "I'M NO GOOD. I DON'T WANT PEOPLE TO HAVE TO TAKE CARE OF ME. I FEEL LIKE A BURDEN. THESE PEOPLE HAVE OTHERS THEY SHOULD BE TAKING CARE OF, NOT ME". ATTEMPTED TO PROVIDE PT WITH EMOTIONAL SUPPORT, DISCUSSED PT'S NIECE WHO WOULD NOT WANT TO LOSE HER TO SUICIDE, PT STATES "I THINK IT WOULD BE EASIER FOR HER IF I WAS GONE. I'M SUCH A BURDEN". PT STATES SHE HAS BEEN HAVING THESE SUICIDAL THOUGHTS SINCE SHE BROKE HER HIP A YEAR AGO. PT REPORTS SIGNIFICANT PAIN TO THE RIGHT LEG AND HIP RATED LEVEL 10/10, PT REPORTS THE CHRONIC PAIN ANOTHER STRESSOR. PT STATES "I THINK ANYONE WHO COMMITS SUICIDE HAS A PRETTY GOOD REASON TO DO IT LIKE I DO". WAS UPDATED WITH ALL OF THE ABOVE. STATES TO D/C REMERON. GAVE NEW ORDER FOR CYMBALTA 30MG AT HS TO HELP COMBAT BOTH DEPRESSION AND CHRONIC PAIN. STATES TO IMPLEMENT LINE OF SIGHT OBSERVATION AT THIS TIME UNTIL HE CAN ASSESS PT IN THE MORNING. NURSING BOAT OAR MAKER UPDATED RE: LINE OF SIGHT. PT ALSO REPORTS "GOOFY DREAMS" AND STATES SHE SEES PEOPLE WHO ARE IN HER DREAMS. PT'S SHAYICE STATES THAT THE PATIENT BELIEVES THESE ARE "DREAMS" BUT IN REALITY THEY ARE HALLUCINATIONS THAT TAKE PLACE WHEN SHE IS AWAKE.
[2019-11-09 20:29] VITALS: BP 104/58
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
--- NOTE | 2019-11-10 05:01 | NUR ---
24 HOUR CHART CHECK COMPLETED.
[2019-11-10 06:25] LABS: BASO % 0.3 % (0.0-1.0); EOS # 0.2 10*3/uL (0.0-0.4); EOS % 1.9 % (1.0-4.0); HEMOGLOBIN 12.4 g/dl (12.0-16.0); LYMPH # 2.2 10*3/uL (1.3-4.4); LYMPH % 22.6 % (27.0-41.0); MEAN CELL VOLUME 91.1 fl (81.0-99.0); MEAN CORPUSCULAR HGB CONC 31.8 g/dl (33.0-37.0); MEAN PLATELET VOLUME 9.8 fl (9.6-12.3); MONO # 0.9 10*3/uL (0.1-1.0); MONO % 9.5 % (3.0-9.0); NEUT # 6.2 10*3/uL (2.3-7.9); NEUT % 65.3 % (47.0-73.0); PLATELET COUNT AUTOMATED 204 10*3/uL (130-400); RED BLOOD COUNT 4.28 10*6/uL (4.10-5.10); RED CELL DISTRI WIDTH 12.8 % (0-14.5); WHITE BLOOD COUNT 9.6 10*3/uL (4.8-10.8)
[2019-11-10 06:26] LABS: ALBUMIN 3.2 gm/dl (3.1-4.5); CREATININE 1.08 mg/dL (0.55-1.02); POTASSIUM 3.9 mmol/L (3.5-5.1); TOTAL PROTEIN 6.4 gm/dL (6.4-8.2)
--- NOTE | 2019-11-10 06:59 | NUR ---
PATIENT OBSERVED ON LOS TO HAVE SLEPT APPROX 2 HOURS THROUGHOUT THE NIGHT. NO SIGNS OR SYMPTOMS OF DISTRESS NOTED.
[2019-11-10 07:48] VITALS: BP 115/65
--- NOTE | 2019-11-10 08:15 | NUR ---
Treatment Plan meeting was held with Dr. Tanner, RN, AT, MEDICAL DIRECTOR OCCUPATIONAL HEALTH-S and Bin Tripper Operator in attendance. plan for discharge next week. Pt. came [facility]. Will reach out to facility today to discuss discharge planning.
--- NOTE | 2019-11-10 08:18 | NUR ---
PHYSICAL THERAPY Screen received as well as PT orders will follow thank you Bertha Pedro PT
--- NOTE | 2019-11-10 08:19 | NUR ---
Nursing screen and Occupational Therapy referral received. Thank you. Shelbi Mobley OTR/L
[2019-11-10 08:48] LABS: VITAMIN D, 25-HYDROXY 39.3 ng/mL (30-100)
--- NOTE | 2019-11-10 09:51 | NUR ---
PT COMPLAINT OF PAIN TO LEFT HIP AND LEG, NORCO GIVEN AT THIS TIME FOR PAIN 6 ON 1-10 SCALE
--- NOTE | 2019-11-10 11:53 | NUR ---
AM GROUP ASSESSMENT WAS COMPLETED ON PT. PT IS VERY CONFUSED AND IS UNAWARE OF WHERE SHE IS OR WHY. PT WAS RETURNED TO DAYROOM FOR GROUP AND BEGAN YELLING OUT THAT HER LEGS WERE CRAMPING AND THAT SHE NEEDED TO GET UP. A PEER BEGAN YELLING AT HER AND THIS UPSET HER FURTHER. NURSE ENTERED, REMOVED THE TRAY FROM THE MARIA ISABEL CHAIR AND HELPED PT TO STAND. PT WAS RESEATED AND RECLINED WITHOUT THE TRAY. PT BEGAN ATTEMPTING TO CLIMB OUT OF THE MARIA ISABEL CHAIR UNAWARE OF HER SAFETY. PT TOOK CHAIR ALARM OFF AND ALMOST CAME OUT OF THE CHAIR UNTIL I PREVENTED HER FROM FALLING TO THE FLOOR. I WAS THE ONLY PERSON IN THE DAYROOM, I PUSHED PT IN HALLWAY TO BE OBSERVED BY NURSE WHO WAS SITTING AT THE DESK. PT IS SUPPOSED TO BE LINE OF SIGHT.
--- NOTE | 2019-11-10 12:47 | NUR ---
Spoke with Jada at [facility]. Pt. will return to [facility]. Pt. was receiving Therapy at [facility].
--- NOTE | 2019-11-10 14:07 | NUR ---
P: ST/LT MEMORY LOSS, DELUSIONS, SUICIDAL STATEMENTS, COMPLAINT OF PAIN TO RIGHT LEG, HIGH FALL RISK I: DR FAITH NOTIFIED OF LEG PAIN WITH NEW ORDERS FOR XRAY, AND CHANGE IN NORCO ORDER. PT WAS GIVEN NORCO FOR PAIN OF 6 ON 1-10 SCALE. PT SPOKED TO BY THIS NURSE 1:1 IN REFERENCE TO PREFERENCES OF MEDICATIONS. HOW PT FELT ABOUT HER LIFE, REFERENCE OF SUICIDAL THOUGHT PROCESS. R: NORCO RELAXED PT AND DECREASED ANXIETY AND RESLTESSNESS. PT HAD BEEN ATTEMPTING TO AMBULATE WITHOUT STAFF, WAS ARGUEMENTATIVE STATING "I DON'T BELONG HERE, I CAME TO VISIT AND YOU HAVE ME CONFUSED WITH SOMEONE ELSE" REDIRECT INCREASED AGITATION. PT GIVEN 1:1 WITH THIS NURSE AND STATED THAT SHE WOULD "NEVER KILL MYSELF, HOW HORRIBLE, WHO SAID I WOULD, THEY BELONG HERE!" SHE HAS BEEN REPEATATIVE THROUGH OUT THE MORNING ASKING WHY SHE IS HERE. HOW TO GET OUT P: CONTINUE TO MONITOR BEHAVIORS, MOODS, AMBULATION, PAIN TOLERANCE, AT THIS TIME THERE ARE NO SI/HI NOTED. PT IS BLIND IN HER LEFT EYE, ENSURE THAT SHE IS ABLE TO SEE LARGE AREA AROUND HER BY PUTTING HER RIGHT EYE TO MOST OCCUPIED AREA TO DECREASE STRESS. PT IS ALERT TO PERSON, STATED THE YEAR IS 2002, UNABLE TO NAME THE PRESIDENT, AMBULATED WITH 1 ASSIST FOR SHORT DISTANCE TO TOILET PT GAIT UNSTEADY.
--- NOTE | 2019-11-10 14:54 | NUR ---
Awaiting xrays of right hip before proceeding with Occupational Therapy evaluation. Shelbi Mobley OTR/l
--- NOTE | 2019-11-10 15:28 | NUR ---
Family meeting held via the phone with pt's DPOAHC Samantha Vargas. Samantha confirmed that pt's son Omar committed suicide approximately 4 years ago when he moved back from [place] to pt's home to assist in caring for her. Samantha stated that Omar had only been living with pt for a few months when pt found Omar . Samantha further shared that pt rarely speaks of having a son and will at times deny that she had a child. Samantha stated that pt has never tried to harm herself before. Reviewed pt's current medications. Confirmed discharge plan of pt returning to [facility].
--- NOTE | 2019-11-10 15:59 | NUR ---
PM GROUP PT DID NOT ATTEND AFTERNOON GROUP THERAPY. PT WAS IN THE HALLWAY LINE OF SITE SLEEPING RECLINED IN A MARIA ISABEL CHAIRL
[2019-11-10 16:44] VITALS: BP 129/53
[2019-11-10 20:12] VITALS: BP 112/60
--- NOTE | 2019-11-11 01:32 | NUR ---
P-CONFUSED, ACCUSATORY, RESISTIVE WITH HOC I-REORIENT AND PRESENT REALITY. PROVIDE 1:1 WITH THERAPEUTIC INTERVENTIONS. ENCOURAGE MEDICATION COMPLIANCE AND EDUCATE. MONITOR SLEEP. R-"IM GOING TO NEED YOU TO CALL THE POLICE, IM CONTACTING MY NURSE RESEARCHER". PT ALERT TO SELF, CONFUSED. PT CONTINUES TO BELIEVE STAFF IS HOLDING HER AGAINST HER WILL AND IS ABUSING HER. PT UNRECEPTIVE TO REDIRECTION OR INTERVENTIONS, X2 STAFF WITH ALL CARE DUE TO ACCUSATORY BEHAVIOR. PT MEDICATION COMPLIANT WITH MINIMAL PROMPTING, UNABLE TO EDUCATE DUE TO COGNITION. PT ABLE TO VOICE NEEDS, CONTINENT OF BOWEL AND BLADDER, NO COMBATIVE BEHAVIOR NOTED. PT DENIES SI/HI, HALLUCINATIONS, OR PAIN. PT RESTING QUIETLY AT THIS TIME, RESPIRATIONS EASY AND REGULAR, NO SIGNS OR SYMPTOMS OF DISTRESS NOTED. P-CONTINUE TO MONITOR MOOD AND BEHAVIORS. PROVIDE 1:1 WITH THERAPEUTIC INTERVENTIONS. ENCOURAGE MEDICATION COMPLIANCE. MAINTAIN FALL PRECAUTIONS AND Q 15 MIN CHECKS.
--- NOTE | 2019-11-11 05:40 | NUR ---
24 HOUR CHART CHECK COMPLETED.
--- NOTE | 2019-11-11 06:06 | NUR ---
PATIENT SLEPT APPROX 3 HOURS INTERRUPTED THIS SHIFT.
[2019-11-11 08:00] VITALS: BP 113/62
--- NOTE | 2019-11-11 08:15 | NUR ---
Treatment Plan meeting was held this a.m. with BENNY Louis, RN, AT, CORINA-S and Registered Art Therapist in attendance. Plan for discharge Next week. Pt. to return to [facility].
--- NOTE | 2019-11-11 10:28 | NUR ---
AND TEAM ON UNIT TO SEE PT AT THIS TIME.
--- NOTE | 2019-11-11 11:42 | NUR ---
PHYSICAL THERAPY Attempted to eval patient however in group activity will follow Bertha Pedro PT
--- NOTE | 2019-11-11 11:45 | NUR ---
AM GROUP PT WAS PRESENT FOR MORNING GROUP THERAPY BUT DECLINED ANY ACTIVITY OFFERED. PT SAT QUIETLY AND OBSERVED OR NAPPED. PT EXHIBITED NO AGITATION OR AGGRESSION WHILE IN GROUP
--- NOTE | 2019-11-11 11:45 | NUR ---
Patient not available for Occupational Therapy as she is in group therapy session. Shelbi Mobley OTR/l
--- NOTE | 2019-11-11 13:20 | NUR ---
Occupational Therapy evaluation completed on 3 with full eval to follow. Precautions include 3N unit precautions,impaired orientation to year,place, poor short term memory but able to follow 1 step instructions, moderate complexity level 28469. Recommend OT per pOC and SNF to enable return to [facility]. Thank you. Shelbi Mobley OTR/l
--- NOTE | 2019-11-11 14:31 | NUR ---
PHYSICAL THERAPY Nkechial completed pt moderate level of complexity 62706 recomend return to facility f/u thearpy as/if approp. PT to work on transfers, Amb for short functional distances, strengthening. Bertha Pedro PT
--- NOTE | 2019-11-11 14:34 | NUR ---
Clinical Updates faxed to [facility] Attn: Nurse.
--- NOTE | 2019-11-11 15:37 | NUR ---
PM GROUP/MOVIE PT WAS PRESENT FOR AFTERNOON GROUP THERAPY RECLINED IN A MARIA ISABEL CHAIR SLEEPING. PT WOKE A FEW TIMES BUT WENT RIGHT BACK TO SLEEP
--- NOTE | 2019-11-11 16:49 | NUR ---
P- CONFUSED. PT CONTINUES TO MAKE ACCUSATORY STATEMENTS ABOUT STAFF. PT DENIES SUICIDAL IDEATIONS. NO AGGRESSIVE BEHAVIORS. I- ORIENTATION, MOOD AND BEHAVIORS ASSESSED. ASSESSED PT FOR SI/HI, INTENT OR PLAN. ASSESSED PT S/S HALLUCINATIONS, PARANOIA AND/OR DELUSIONS. MEDICATIONS ADMINISTERED PER PHYSICIAN'S ORDERS. ASSISTANCE WITH ADL CARE PROVIDED NEEDED. ENCOURAGED PT TO ATTEND AND PARTICIPATE IN [facility] GROUPS AND ACTIVITIES. R- PT IS ALERT AND ORIENTED TO PERSON AND PLACE. NOT TIME OR SITUATION. PT BELIEVES THE YEAR IS 2009 AND IS UNABLE TO STATE WHY SHE IS IN THE HOSPITAL. POOR SHORT TERM MEMORY RECALL. RESPS EASY AND EVEN ON ROOM AIR. MOOD LABILE, PT IS CALM AND COOPERATIVE AT TIMES AND OTHER TIMES BECOMES IRRITABLE AND ACCUSATORY OF STAFF WITH HANDS ON CARE. 2 STAFF INTERACTIONS MAINTAINED. PT DENIES SI/HI, INTENT OR PLAN. PT DENIES HALLUCINATIONS, NO RESPONSE TO INTERNAL STIMULI NOTED. NO PARANOIA OR DELUSIONS NOTED. PT STATES THE NEW PAIN MEDICINE IS HELPING. NO DISTRESS NOTED. P- PLAN TO CONTINUE CURRENT TREATMENT, CONTINUE TO MONITOR MOOD AND BEHAVIORS, PROVIDE APPROPRIATE REORIENTATION, REDIRECTION AND 1:1 NEEDED. CONTINUE TO ENCOURAGE MEDICATION COMPLIANCE WELL GROUP ATTENDANCE AND PARTICIPATION.
[2019-11-11 20:00] VITALS: BP 142/67
--- NOTE | 2019-11-11 21:28 | NUR ---
Patient alert to self with confusion noted. Patient calm at this time. Patient sleeping in chair at this time but awakens easily for medications. Patient cooperative at this time with HOC. No signs of any responding to internal stimuli noted. Patient compliant with HS medications without any difficulty. Unable to provided 1:1 for therapeutic communication and emotional support due to patient falling asleep. Reoriented/redirected when needed. Plan to continue to encourage medication compliance. Also continue to provide emotional support and also reorient/redirect when needed/appropriate. Continue to monito moods/behaviors. Q 15 minute safety checks continued and maintained. [facility] flowsheet for further documentation.
--- NOTE | 2019-11-12 00:28 | NUR ---
24 HR chart check completed.
--- NOTE | 2019-11-12 05:53 | NUR ---
Patient slept approx. 7 hours throughout shift. Q 15 minute safety checks continued and maintained.
[2019-11-12 07:59] VITALS: BP 116/86
--- NOTE | 2019-11-12 09:40 | NUR ---
AND ON UNIT TO SEE PT AT THIS TIME.
--- NOTE | 2019-11-12 10:00 | NUR ---
[facility], UPDATE GIVEN.
--- NOTE | 2019-11-12 12:06 | NUR ---
NO ADVERSE MOODS OR BEHAVIORS THUS FAR IN THE SHIFT. PT IS ALERT AND ORIENTED WITH CONFUSION NOTED. PT ASKED THIS NURSE "ARE WE IN A VEHICLE OF SOME SORT?" EASILY REORIENTED. MEMORY GAPS NOTED. RESPS EASY AND EVEN ON ROOM AIR. MOOD HAS BEEN STABLE THIS MORNING, APPROPRIATE AFFECT. SPEECH IS WNL AND COHERENT, ABLE TO MAKE NEEDS KNOWN WITHOUT DIFFICULTY. PT NAPPING INTERMITTENTLY T/O MORNING, AROUSES EASILY WHEN CALLED BY NAME. PT DENIES SI/HI, INTENT OR PLAN. PT DENIES HALLUCINATIONS, NO RESPONSE TO INTERNAL STIMULI NOTED. NO PARANOIA OR DELUSIONS NOTED. PT CALM AND COOPERATIVE. MED COMPLIANT WITHOUT DIFFICULTY. NO AGGRESSIVE BEHAVIORS DISPLAYED. PT HAS NOT MADE ANY ACCUSATORY STATEMENTS OF THIS TIME IN THE SHIFT. 2 STAFF INTERACTIONS MAINTAINED. NO DISTRESS NOTED. PLAN TO CONTINUE CURRENT TREATMENT, CONTINUE TO MONITOR MOOD AND BEHAVIORS, PROVIDE APPROPRIATE REORIENTATION, REDIRECTION AND 1:1 NEEDED. COUNTINUE TO ENCOURAGE MEDICATION COMPLIANCE WELL GROUP ATTENDANCE AND PARTICIPATION.
--- NOTE | 2019-11-12 12:10 | NUR ---
AM GROUP/LEISURE SKILLS PT IN ATTENDANCE AND PARTICIPATED FOR PART OF GROUP LOOKING THROUGH A PICTURE BOOK. PT EXPRESSED NO ASSAULTIVE OR AGGRESSIVE BEHAVIORS AT THIS TIME. THERE WAS ALSO NO EXPRESSION OF ANY SUICIDIAL/HOMICIDAL IDEATIONS. PT DID EXPRESS FEELING IF HER STOMACH IS UPSET THIS STAFF INFORMED NURSING. PT WILL CONITNUE TO ATTEND AND BE ENCOURAGED TO PARTICIPATE TO BEST OF PT ABILITY.
--- NOTE | 2019-11-12 12:28 | NUR ---
ROUTINELY ORDERED NORCO GIVEN AT THIS TIME. PT STATES HIP PAIN IS CURRENTLY AN 8 OUT OF 10 ON THE PAIN SCALE. PT DENIES ANY OTHER COMPLAINTS. ASKED PT IF SHE FELT SICK TO HER STOMACH, PT DENIES. WILL MONITOR FOR PAIN RELIEF AFTER ADMINSITRATION OF NORCO.
--- NOTE | 2019-11-12 15:50 | NUR ---
PM GROUP/BINGO! PT IN ATTENDANCE RESTING [facility] GROUP. PT OFFERED TO PLAY BINGO BUT STATES "I CANT SEE OR HEAR" THIS STAFF OFFERS ASSISTANCE BUT PT IMMEDIATLEY FALLS ASLEEP AGAIN. PT DID NOT BECOME ASSULATIVE OR AGGRESSIVE. PT DID NOT EXPRESS ANY S.I. OR H.I. AT THIS TIME. PT WILL CONTINUE TO ATTEND AND BE ENCOURAGED TO PARTICIPATE IN FUTURE GROUP SESSIONS TO BEST OF PT ABILITY.
--- NOTE | 2019-11-12 17:24 | NUR ---
PT STATES NORCO GIVEN EARLIER HAS BEEN EFFECTIVE FOR PAIN RELIEF AND DECLINED TO TAKE SCHEDULED 1800 DOSE. PT STATES "I'LL HOLD OFF FOR NOW". PT VOICES NO OTHER COMPLAINTS. NO DISTRESS NOTED. EATING DINNER AT THIS TIME.
--- NOTE | 2019-11-12 18:05 | NUR ---
PT VOMITING AT THIS TIME, LARGE EMESIS OF UNDIGESTED FOOD. VITALS STABLE AND ARE FOLLOWS: [id number]/61- 96% ROOM AIR. PT STATES OTHER THAN FEELING UPSET TO HER STOMACH SHE HAS NO OTHER COMPLAINTS AT THIS TIME. CALL PLACED TO AND MADE AWARE. TELEPHONE ORDER RECIEVED FOR PRN ZOFRAN 4MG SL Q6H PRN N/V. READ BACK AND VERIFIED. WITNESSED BY 2ND RN [email or web address].
--- NOTE | 2019-11-12 18:18 | NUR ---
PRN ZOFRAN 4MG SL GIVEN AT THIS TIME FOR NAUSEA/VOMITING. PT VISITING WITH ARELI, UPDATE GIVEN. WILL MONITOR FOR EFFECTIVENESS OF MEDICATION.
[2019-11-12 20:00] VITALS: BP 120/62
--- NOTE | 2019-11-12 20:40 | NUR ---
24 HR chart check completed.
--- NOTE | 2019-11-12 23:27 | NUR ---
P-CONFUSION I-ASSESS ORIENTATION, ENCOURAGE VENTILATION OF FEELINGS, PROVIDE EMOTIONAL SUPPORT R-PT HAS REMAINED IN BED SINCE THE ONSET OF THE SHIFT SLEEPING. AROUSES EASILY WHEN AWAKENED, ALERT TO PERSON ONLY WITH MEMORY DEFICITS. UPON ASSESSMENT PT STATED SHE DIDN'T KNOW WHERE SHE WAS, NOR DOES SHE CARE. DENIES SUICIDAL FEELINGS. DENIES FURTHER NAUSEA & STATED THAT SHE IS FEELING BETTER. REFUSED SNACK. COMPLIANT WITH MEDICATIONS. STATED, "I'M JUST TIRED. CAN I SLEEP NOW.". PT IS APPROACHED WITH 2 STAFF AT A TIME & HAS MADE NO ACCUSATORY STATEMENTS. NO AGGRESSION. REFUSED OFFER TO GO TO BATHROOM STATING SHE DIDN'T HAVE TO GO AT THIS TIME. P-CONTINUE TO MONITOR & PROVIDE PHYSICAL & EMOTIONAL SUPPORT NEEDED.
--- NOTE | 2019-11-13 06:09 | NUR ---
PT HAS BEEN IN BED SINCE THE ONSET OF THE SHIFT WITH BRIEF INTERMITTENT AWAKENINGS. 2 STAFF ASSISTS THIS AM FOR TOILETING. PT WAS INCONTINENT OF URINE & BEGAN YELLING. "NO NO I CANT WALK. PUT ME BACK IN BED. I'M SICK. I'M GONNA THROW UP. I WANT TO SLEEP. WHAT ARE YOU DOING TO ME". PT PROVIDED HYGIENE & ASSISTED TO A WHEEL CHAIR. ASK RN WHERE SHE WAS AT & WHY AM I HERE. ANSWERED PTS QUESTIONS & SHE PUT HER HEAD IN HER HANDS & REFUSED TO ANSWER QUESTIONS.
[2019-11-13 07:57] VITALS: BP 110/67
--- NOTE | 2019-11-13 09:00 | NUR ---
DR. FAITH ON UNIT TO ASSESS PATIENT.
--- NOTE | 2019-11-13 16:44 | NUR ---
Shift chart check completed.
--- NOTE | 2019-11-13 17:12 | NUR ---
P: ACCUSTORY OF STAFF DURING HANDS ON CARE AND STATING "I'M BLIND"; DISRUPTIVE IN DINING ROOM YELLING AT OTHER PATIENTS IN REGARDING TV BEING TOO LOUD AND WANTING IT TURNED OFF. ARGUEMENTATIVE WITH STAFF WANTING TO GO TO BED FOR THE NIGHT AFTER DINNER. TALKING TO SELF IN DINING ROOM. ANXIOUS WITH IRRITABLE MOOD. I: ONE ON ONE, REDIRECTION, CHANGE OF ENVIROMENT TO QUIET ROOM WITH LOW STIMULI AND PROVIDING SPACE. R: EFFECTIVE. PATIENT IS ALERT AND ORIENTED TO PERSON AND PLACE WITH CONFUSION. MOOD IS ANXIOUS AND IRRITABLE. RESPONDING TO INTERNAL STIMULI. NO DENIES ANY HALLUCINATIONS, DELUSION, HI/SI OR PAIN. RECIEVES TEQUILA FOR PAIN MANAGEMENT. 2 PERSON ASSIST WITH ACTIVITIES OF DAILY LIVING, INCONTINENT OF BOWEL AND BLADDER. SET UP FOR MEALS, INTAKES ARE GOOD WITH ADEQUATE FLUIDS. UP IN WHEELCHAIR, ABLE TO SELF PROPEL ON UNIT. INTERACTIVE WITH STAFF AND OTHER PATIENTS. WATCHED MOVIE IN DINING ROOM THIS AFTERNOON. MEDICATION COMPLAINT. Q 15 MINUTE SAFETY CHECKS MAINTAINED. P: CONTINUE TO MONITOR FOR SUICIDAL IDEATION, AGGRESSION AND MOOD. PROVIDE ONE ON ONE FOR EMOTIONAL SUPPORT, REDIRECTION, ENVIRONMENT WITH LOW STIMULI AND SPACE NEEDED.
--- NOTE | 2019-11-13 19:27 | NUR ---
24 HR chart check completed.
[2019-11-13 19:59] VITALS: BP 126/67
--- NOTE | 2019-11-13 22:55 | NUR ---
P-CONFUSION I-ASSESS ORIENTATION, ENCOURAGE VENTILATION OF FEELINGS, PROVIDE EMOTIONAL SUPPORT R-MOOD IS PLEASANT WITH A MUCH BRIGHTER AFFECT. HAS BEEN HUMMING WHILE IN THE ANDINO WAY. INDEPENDENTLY WHEELING HERSELF AROUND VIA WHEELCHAIR. ALERT TO PERSON & PLACE WITH MEMORY DEFICITS. DENIES SUICIDAL FEELINGS. SAT IN THE DINING ROOM & ATE SNACK WHILE SOCIALIZING APPROPRIATELY WITH A MALE PEER. PT HAS ALSO BEEN NOTED TO TALK TO HERSELF OUT LOUD WHILE SITTING AT THE END OF THE ANDINO. DID STATE THAT HER NIECE CAME & VISITED HER TODAY & SHE HAD A GOOD VISIT. COMPLIANT WITH MEDICATIONS. PT IS APPROACHED WITH 2 STAFF AT A TIME & HAS MADE NO ACCUSATORY STATEMENTS. NO AGGRESSION. MORE INDEPENDENT WITH ADLS & NEEDED MINIMAL STAFF ASSISTANCE. P-CONTINUE TO MONITOR & PROVIDE PHYSICAL & EMOTIONAL SUPPORT NEEDED.
--- NOTE | 2019-11-13 23:44 | NUR ---
PT WAS ATTEMPTING TO GET OUT OF BED. PT BEGAN YELLING & SCREAMING, "I ONLY HAVE 43 MINUTES TO LIVE". WHEN STAFF ATTEMPTED TO HELP HER WITH HANDS ON CARE, SHE BEGAN SWINGING HER ARMS AT STAFF. ASSISTED TO A MARIA ISABEL CHAIR.
--- NOTE | 2019-11-14 00:30 | NUR ---
PT HAS BEEN RESTLESS & HAS BEEN TALKING OUTLOUD TO HERSELF. AUDITORY HALLUCINATIONS SUSPECTED. PT GIVEN ATIVAN 1 MG PO @ 0029. WHILE TALKING TO PT SHE STATED. "CAN I TALK TO HER" & POINTED TO NO ONE ON THE COUCH. INFORMED HER OF THIS & SHE STATED, "WELL, SHE WAS JUST THERE A MINUTE AGO."
--- NOTE | 2019-11-14 01:29 | NUR ---
PT ASSISTED TO THE BATHROOM. INCONTINENT & CONTINENT OF URINE.
--- NOTE | 2019-11-14 05:55 | NUR ---
ATIVAN MINIMALLY EFFECTIVE. DID CALM PT DOWN. PT SLEPT PAST 0200 WITH BRIEF INTERMITTENT AWAKENINGS.
[2019-11-14 07:49] VITALS: BP 121/69
--- NOTE | 2019-11-14 08:15 | NUR ---
Treatment Plan meeting was held with Dr. Tanner, BENNY Louis, RN, AT, SUPERVISOR FORMING DEPARTMENT-S and Firewood Cutter in attendance. Plan for discharge when stable with return to [facility]. Clinical Updates faxed to facility.
--- NOTE | 2019-11-14 11:49 | NUR ---
AM GROUP PT WAS PRESENT FOR MORNING GROUP THERAPY RECLINED IN A MARIA ISABEL CHAIR WITH THE TRAY ON. PT WAS SLEEPING AND WOKE ONCE MOANING AND WENT BACK TO SLEEP.
--- NOTE | 2019-11-14 15:39 | NUR ---
PM GROUP PT WAS PRESENT FOR AFTERNOON GROUP THERAPY RECLINED IN A MARIA ISABEL CHAIR WITH THE TRAY ON SLEEPING. PT DID NOT WAKE DURING GROUP.
--- NOTE | 2019-11-14 19:41 | NUR ---
PATIENT IS ALERT TO PERSON WITH CONFUSION; ABLE TO VOICE NEEDS. LONG/SHORT TERM MEMORY DEFICITS. MOOD IS HOPELESS/HELPLESS. NO RESPONSE TO INTERNAL STIMULI. NO VOICED STATEMENT OF HI/SI OR PAIN. PATIENT RESTING THROUGHOUT THE DAY. PATIENT SLEPT THROUGH GROUP SESSION. MEDICATION COMPLIANT. Q 15 MINUTE SAFETY CHECKS MAINTAINED. 1 PERSON ASSIST WITH ACTIVITIES OF DAILY LIVING, INCONTINENT OF BOWEL AND BLADDER. SET UP FOR MEALS, ASSIST NEEDED. CONTINUE TO MONITOR FOR SUICIDAL IDEATIONS AND HALLUCINATIONS. PROIVIDE ONE ON ONE AND REDIRECTION NEEDED.
[2019-11-14 19:52] VITALS: BP 121/66
--- NOTE | 2019-11-14 20:50 | NUR ---
EVENING/LEISURE SKILLS PT IN ATTENDANCE BUT SLEEPING IN RECLINER ENTIRE TIME.
--- NOTE | 2019-11-14 23:32 | NUR ---
24 HR chart check completed.
--- NOTE | 2019-11-15 00:39 | NUR ---
P-CONFUSION I-ASSESS ORIENTATION, ENCOURAGE VENTILATION OF FEELINGS, PROVIDE EMOTIONAL SUPPORT R-PT HAS BEEN SLEEPING IN A GERICHAIR IN THE DINING ROOM SINCE THE ONSET OF THE SHIFT. AROUSES EASILY WHEN AWAKENED & IS PLEASANT. ALERT TO PERSON & PLACE. WITH MEMORY DEFICITS. DENIES SUICIDAL FEELINGS. ATE SNACK. COMPLIANT WITH MEDICATIONS. STATED, "I'M DOING GOOD. JUST TIRED". PT IS APPROACHED WITH 2 STAFF AT A TIME & HAS MADE NO ACCUSATORY STATEMENTS. NO AGGRESSION. CONTINENT & INCONTINENT OF BLADDER. P-CONTINUE TO MONITOR & PROVIDE PHYSICAL & EMOTIONAL SUPPORT NEEDED.
--- NOTE | 2019-11-15 06:40 | NUR ---
PT SLEPT THROUGHOUT THE MAJORITY OF THE SHIFT.
[2019-11-15 08:00] VITALS: BP 114/69
--- NOTE | 2019-11-15 08:00 | NUR ---
Treatment Plan meeting was held with Dr. Tanner, BENNY Louis, RN, AT, HAIR STYLIST-S and Warehouse Guard in attendance. Plan for discharge at the end of the week or Thursday with retur to [facility].
--- NOTE | 2019-11-15 08:00 | NUR ---
ON UNIT TO SEE PT AT THIS TIME.
--- NOTE | 2019-11-15 08:48 | NUR ---
AND VELIA PMHNP-BC ON UNIT TO SEE PT AT THIS TIME. UPDATE GIVEN.
--- NOTE | 2019-11-15 11:38 | NUR ---
AM GROUP PT WAS PRESENT FOR MORNING GROUP THERAPY SITTING IN A WHEELCHAIR. PT CHOSE NOT TO PARTICIPATE IN ANY ACTIVITY OFFERED. PT SAT WITH EYES CLOSED FOR MOST OF THE TIME. PT EXPRESSED CONFUSION IN ASKING, "WHAT YEAR IS IT?" PT WAS ALSO COMPLAINING, "MY HEAD HURTS, I NEED TO LAY DOWN." PT EXHIBITED NO AGITATION OR AGGRESSION WHILE IN GROUP.
--- NOTE | 2019-11-15 15:39 | NUR ---
PM GROUP PT WAS PRESENT FOR AFTERNOON GROUP THERAPY AND IS CONTENT TO SIT AND OBSERVE OR NAP. PT BEGAN AROUND 3PM LOOKING FOR HER SHOES. PT IS HIGHLY CONFUSED BUT EXHIBITED NO AGITATION OR AGGRESSION.
--- NOTE | 2019-11-15 18:56 | NUR ---
NO ADVERSE MOODS OR BEHAVIORS THIS SHIFT. PT IS ALERT WITH CONFUSION. PLEASANT AND COOPERATIVE. EASILY REDIRECTABLE. MEMORY GAPS NOTED. RESPS EASY AND EVEN ON ROOM AIR. MOOD HAS BEEN STABLE THIS SHIFT, AFFECT APPROPRIATE. SPEECH WNL AND COHERENT, ABLE TO MAKE NEEDS KNOWN WITHOUT DIFFICULTY. PT DENIES SI/HI, INTENT OR PLAN. PT DENIES HALLUCINATIONS, NO RESPONSE TO INTERNAL STIMULI NOTED. PT IS MED COMPLIANT WITHOUT DIFFICULTY. NO DISTRESS NOTED. NO AGGRESSIVE BEHAVIORS. PLAN TO CONTINUE CURRENT TX, CONTINUE TO MONITOR MOOD AND BEHAVIORS, PROVIDE APPROPRIATE REORIENTATION, REDIRECTION AND 1:1 NEEDED. CONTINUE TO ENCOURAGE MEDICATION COMPLIANCE WELL GROUP ATTENDANCE AND PARTICIPATION.
[2019-11-15 20:00] VITALS: BP 129/58
--- NOTE | 2019-11-15 20:40 | NUR ---
EVENING GROUP/BINGO PT ATTENDED AND OBSERVED GROUP BUT CHOSE NOT TO PARTICIPATE IN BINGO. PT REMAINED PLEASANT AND RELAXED WITH NO ASSAULTIVE/AGGRESSIVE BEHAVIORS, OR HOMICIDAL/SUICIDAL IDEATIONS AT THIS TIME. PT WILL CONTINUE TO ATTEND AND PARTICIPATE IN FUTURE GROUP SESSIONS TO BEST OF PT ABILITY.
--- NOTE | 2019-11-15 21:01 | NUR ---
24 HR chart check completed.
--- NOTE | 2019-11-16 00:49 | NUR ---
P-CONFUSION I-ASSESS ORIENTATION, ENCOURAGE VENTILATION OF FEELINGS, PROVIDE EMOTIONAL SUPPORT, ADMINISTER MEDS, MONITOR SLEEP R-PT SAT IN A WHEELCHAIR THIS EVEINING IN THE DINING ROOM. NOTED TO HAVE INTERMITTENT NAPPING. PLEASANT. ALERT TO PERSON & PLACE. WITH MEMORY DEFICITS. NO SUICIDAL FEELINGS, ACCUSATORY STATEMENTS OR COMPLAINTS VOICED. ABLE TO MAKE NEEDS KNOWN. ATE SNACK. COMPLIANT WITH MEDS. 1 STAFF ASSIST. NO AGGRESSION. CONTINENT & INCONTINENT OF BLADDER. P-CONTINUE TO MONITOR & PROVIDE PHYSICAL & EMOTIONAL SUPPORT NEEDED.
--- NOTE | 2019-11-16 05:23 | NUR ---
PT HAS SLEPT FROM 2345 TO 0400. UPON AWAKENING PT RECEIVED A SHOWER WITH 2 STAFF ASSISTS. PT HAD INCREASED ANXIETY & STATED THAT ITS A MISTAKE & SHE SHOULD'T BE HERE. REPEATEDLY ASKING STAFF, "DO YOU KNOW MY NAME? WHERE'S THE DR. I BET HE DOESN'T KNOW ME." SHE WAS UNRECEPTIVE TO REORIENTATION. ATTEMPTED TO REDIRECT TO WATCH TV BUT PT WAS UNRECEPTIVE. MEDICATED WITH ATIVAN 1 MG PO @ 0445 WHICH HAS BEEN EFFECTIVE. PRESENTLY SITTING IN THE DINING ROOM IN A WHEELCHAIR TALKING TO ANOTHER FEMALE PEER.
--- NOTE | 2019-11-16 07:35 | NUR ---
PHYSICAL THERAPY Patient seen this am for therapy visit and was sitting up in her w/c in doorway to her room upon therapist arrival. Patient identified by name / and was joined by OT licensed loan officer assistant who was present for observation only. Patient voices no c/o's pain and required multiple v/c's to complete all therapy activities this morning. Patient transfers sit to stand with MOD A, then ambulates with use of wh walker, MIN A, demonstrating POOR upright posture, secondary to increased B knee flexion. Patient also demonstrates POOR safety awareness with walker navigation, unsteady gait pattern and fatigues quickly, requiring w/c follow with gait ex. Patient returned to her w/c and transported to activity room awaiting breakfast, under [facility] staff Supervision. Will continue per POC, total treatment time 14 minutes. Chavo Odell, DAYCARE TEACHER
--- NOTE | 2019-11-16 07:50 | NUR ---
OT NOTE PT was seen this A.M. 1:1 for 15 minute OT session with PAYROLL ASSISTANT and nursing staff present for observation only. Upon arrival pt was sitting uproght in the w/c in the hallway. Pt identified by name and and had no complaints at this time. Pt was taken to the bathroom where she completed sit to stand from chair level with modA and use of w/w for UE support followed by functional mobility into the bathroom with Cindy and use of w/w. There she transferred on/off standard commode with modA and use of grab bar for UE support. Pt then stood sink side while washing her hands with Cindy for assist with correcting retrograde posture and sequencing of task. Pt wsa left sitting uproght in the w/c in the dining cantu under [facility] staff supervision. . Continue with rec D/C plan to return to [facility] or SNF. MEAGHAN Bourgeois/Syed
[2019-11-16 08:00] VITALS: BP 132/57
--- NOTE | 2019-11-16 08:00 | NUR ---
Treatment Plan meeting was held with Dr. Tanner, BENNY Louis, RN, AT, AUTOMATIC LEHR OPERATOR-S and District Plant Engineer in attendance. Plan for discharge . Pt. will return to [facility].
--- NOTE | 2019-11-16 08:47 | NUR ---
AND VELIA PMHNP-BC ON UNIT TO SEE PT AT THIS TIME. UPDATE GIVEN.
--- NOTE | 2019-11-16 11:59 | NUR ---
AM GROUP PT WAS PRESENT FOR MORNING GROUP THERAPY SITTING IN A WHEELCHAIR. PT IS VERY CONFUSED AND EXIT SEEKING. PT ATTEMPTED TO GET UP AND WALK ON HER OWN UNAWARE OF HER SAFETY. PT WAS NOT REDIRECTABLE. PT DID SORT BUTTONS FOR A FEW MINUTES BUT OTHERWISE WAS UNWILLING TO PARTICIPATE IN ANY ACTIVITY OFFERED.
--- NOTE | 2019-11-16 14:33 | NUR ---
1:1 PM PT IS HALLUCINATING BELIEVING THAT THERE IS "SOMETHING" ON HER FINGERS. PT STATES, "IT DOESN'T HURT OR BOTHER ME, I'M JUST WORRIED ABOUT THE DOCTORS, IT'S ON THEIR FINGERS TOO" PT ATTEMPTED STANDING UP TO "GO TO THE PLACE WHERE THE [facility] IS, YOU KNOW WHERE THEY PLAY BASEBALL, SO I CAN TELL THE DOCTORS. I'M NOT WORRIED ABOUT ME, I'M WORRIED ABOUT THE DOCTORS, HOW WILL THEY TREAT THEIR OTHER PATIENTS?" PT COULD NOT BE CONVINCED THAT THERE WAS NOTHING ON HER FINGERS DESPITE SEVERAL STAFF AND PEERS TELLING HER. PT DID NOT BECOME AGITATED BUT KEPT ASKING QUESTIONS THAT WERE NONSENSICAL. PT IS NOT AWARE OF WHERE SHE IS OR WHY. PT NURSE WAS NOTIFIED.
--- NOTE | 2019-11-16 15:59 | NUR ---
Clinical Updates faxed to [facility] Attn: Nurse [phone].
--- NOTE | 2019-11-16 16:14 | NUR ---
P- AUDITORY AND VISUAL, POSSIBLE TACTILE HALLUCINATIONS NOTED. CONFUSION. I- ORIENTATION, MOOD AND BEHAVIOR ASSESSED. ASSESSED PT FOR SI/HI, INTENT OR PLAN. ASSESSED PT FOR S/S HALLUCINATIONS, PARANOIA AND/OR DELUSIONS. MEDICATIONS ADMINISTERED PER PHYSICIAN'S ORDERS. ASSISTANCE WITH ADL CARE PROVIDED NEEDED. ENCOURAGED PT TO ATTEND AND PARTICIPATE IN [facility] GROUPS AND ACTIVITIES. R- PT IS ALERT AND ORIENTED TO NAME ONLY. OTHERWISE CONFUSED. PT ASKING FREQUENTLY THIS AM "IS THIS A METHODIST?" REORIENTATION EFFECTIVE ONLY FOR SHORT PERIODS OF TIME. MEMORY GAPS NOTED. RESPS EASY AND EVEN ON ROOM AIR. MOOD IS ANXIOUS AT TIMES. PT DENIES SI/HI, INTENT OR PLAN. PT NOTED WITH RESPONSE TO APPARENT INTERNAL STIMULI, PT OBSERVED TALKING TO UNSEEN OTHERS, PT ALSO ASKING ABOUT GETTING SOMETHING OFF OF HER FINGERS WHEN THERE WAS NOTHING THERE. PT IS MED COMPLIANT WITHOUT DIFFICULTY. NO AGGRESSIVE BEHAVIORS DISPLAYED. NO DISTRESS NOTED. P- PLAN TO CONTINUE CURRENT TREATMENT, CONTINUE TO MONITOR MOOD AND BEHAVIORS, PROVIDE APPROPRIATE REORIENTATION, REDIRECTION AND 1:1 NEEDED. CONTINUE TO ENCOURAGE MEDICATION COMPLIANCE WELL GROUP ATTENDANCE AND PARTICIPATION.
--- NOTE | 2019-11-16 18:37 | NUR ---
CLIENT TEARY AND UPSET. STATES SHE NEEDS TO GET OUTSIDE TO HELP HER STONER OUT. SAYS HE AND OTHERS ARE ON A BUS AND IT IS GOING TO [place]RE[place] AND THEY ALL ARE GOING TO . UNABLE TO REDIRECT OR REORIENT CLIENT AT THIS TIME. FIXATED ON THIS DELUSION. TALKED WITH CLIENT MULTIPLE TIMES OVER THE LAST HOUR WITH NO REDUCTION IN ANXIETY. EMOTIONAL SUPPORT PROVIDED
[2019-11-16 19:36] VITALS: BP 126/64
--- NOTE | 2019-11-16 21:26 | NUR ---
P--CONFUSION, TEARFUL, ANXIOUS I-- TRIED 1:1 TO LET CLIENT VERBALIZE NEEDS BUT THIS SEEMED TO FEED INTO HER DELUSIONS. ATTEMPTS TO REDIRECT OR ORIENT. MEDICATED PER DOCTORS ORDERS R--LOOKING FOR HER . RESPONDING TO UNSEEN THINGS. APPEARS TO BE SEEING OTHERS AND TALKING TO THEM. CONTINUES TO PICK AT FINGERS AND EYES. DIFFICULTY TO REDIRECT P--CONTINUE TO PRESENT REALITY, PROVIDE MEDICATIONS, FOOD AND FLUIDS. MONITOR FOR CHANGES IN BEHAVIOR/MOOD. MONITOR Q 15 MINUTES AND PRN FOR SAFETY
--- NOTE | 2019-11-16 23:27 | NUR ---
C/O BAD LEG PAIN. NORCO GIVEN PER ORDERS
--- NOTE | 2019-11-16 23:47 | NUR ---
SCREAMING HYSTERICALLY IN HER ROOM TO CALL THE POLICE THAT A MAN WAS UNDER HER BED. UNABLE TO REDIRECT. GOT CLIENT OUT OF BED AND SHE BUCKLED HER KNEES BEARING NO WEIGHT. THIRD STAFF MEMBER ASSISTED TO GET HER TO MARIA ISABEL CHAIR. PLACED IN QUIET ROOM WITH WARM BLANKETS APPLIED
--- NOTE | 2019-11-17 01:39 | NUR ---
MUCH CALMER AT THIS TIME. NORCO EFFECTIVE ALONG WITH ROOM CHANGE
--- NOTE | 2019-11-17 01:52 | NUR ---
24 HR chart check completed.
--- NOTE | 2019-11-17 06:37 | NUR ---
SLEPT LESS THAN AN HOUR ALL NIGHT. NOW UP IN WHEELCHAIR AND WANTING TO LAY DOWN AND GO TO SLEEP. WILL CONTINUE TO MONITOR
--- NOTE | 2019-11-17 07:20 | NUR ---
PHYSICAL THERAPY Patient seen this am for therapy visit and was sitting up in her w/c in hallway by [facility] station upon therapist arrival. Patient identified by name / on wristband and presented with increased confusion. Patient also observed talking to people / objects that were not there and needed repeated v/c's to focus on task this session. Patient transfers sit to stand MIN A and ambulated with use of wh walker, MIN A, 20'x 1, demonstrating very unsteady gait pattern. Patient became fearful of walking, voicing concern of legs not working and needed w/c follow for safety. Patient returned to w/ in activity room awaiting breakfast, under [facility] staff Supervision. OT studio assistant was present this morning for observation only. Will continue per POC as tolerated, total treatment time 13 minutes. Chavo Odell, METAL NUMERICAL CONTROL PROGRAMMER
--- NOTE | 2019-11-17 07:42 | NUR ---
OT NOTE Pt was seen this A.M. 1:1 for 13 minute OT session with EXERCISE SCIENTIST and nursing staff present for observation only. Upon arrival pt was sitting upright in the w/c in the hallway wondering into rooms that were not hers. Pt identified by name and and had no complaints at this time. Pt was speaking to unseen others and objects throughout entire session. Pt completed sit to stand from chair level with Cindy and use of w/w for UE support. Attempted to complete functional mobility into the bathroom to complete an ADL task and pt became very aggitated and was yelling out "no, I have to go to the kitchen" "you are going to make me step on that baby." During what mobility was completed pt required Cindy and use of w/w for UE support. Pt presented with poor safety and required constant verbal prompts for redirection and attention to task. Pt was left sitting upright in the w/c in the dining cantu with body alarm activated for safety and under [facility] staff supervision. Continue with rec D/C plan to return to [facility] or SNF. MEAGHAN Bourgeois/Syed
[2019-11-17 08:00] VITALS: BP 151/77
--- NOTE | 2019-11-17 09:00 | NUR ---
Treatment Plan meeting was held with Dr. Ciro RN and Management Assistant in attendance. Plan for discharge when Stable. Plan had been for pt. to discharge today but she was unstable through the night. Will Follow.
--- NOTE | 2019-11-17 10:07 | NUR ---
DR FAITH ON UNIT TO ASSESS PT, UPDATE PROVIDED.
--- NOTE | 2019-11-17 10:25 | NUR ---
Spoke with Jada at [facility]. Notified that pt. would not discharge today. Will follow tommorow.
--- NOTE | 2019-11-17 11:43 | NUR ---
JOEY GROUP/ADINA PT IS UNABLE TO ATTEND OR PARTICIPATE IN GROUP AT THIS TIME DUE TO COGNITIVE IMPAIRMENT.
--- NOTE | 2019-11-17 14:00 | NUR ---
PT HALLUCINATING, YELLING OUT, SCREAMING, SOBBING. YELLING AT HER UNSEEN KIDS BECAUSE THEY ARE NOT LISTENING TO HER AND SHE HAS HAD ENOUGH. PT ATTEMPTING TO FEED UNSEEN KIDS, YELLING AT THEM TO GO TO BED. PT PRESENTED WITH REALITY AND EMOTIONAL SUPPORT, LOW STIMULATION AND CALM 1:1. PT MINIMALLY RECEPTIVE TO ORIENTATION. STATES "OK, SO I AM SUPPOSED TO SIT HERE WITH MY MOUTH SHUT WHILE MY AND KIDS DO WHATEVER". PT CONTINUES TO WEEP, RESPONSIVE TO 1:1 AND LOW STIMULATION. PT RELAXED IN MARIA ISABEL CHAIR, GIVEN PILLOW AND WARM BLANKET, PT QUIET AT THIS TIME, ANXIETY AND AGITATION LESSENED GREATLY. WILL CONTINUE TO MONITOR PT FOR HALLUCINATIONS, PRESENTING REALITY APPROPRIATE. WILL CONTINUE TO PROVIDE EMOTIONAL SUPPORT APPROPRIATE. Q 15 MIN MONITORING PER POLICY FOR SAFETY.
--- NOTE | 2019-11-17 14:40 | NUR ---
PT C/O LEG PAIN AT THIS TIME. PRN NORCO GIVEN, PT REPOSITIONED FOR COMFORT.
[2019-11-17 14:57] LABS: BASO % 0.4 % (0.0-1.0); EOS # 0.1 10*3/uL (0.0-0.4); EOS % 1.1 % (1.0-4.0); HEMATOCRIT 39.3 % (37.0-47.0); HEMOGLOBIN 12.6 g/dl (12.0-16.0); LYMPH # 1.4 10*3/uL (1.3-4.4); LYMPH % 17.3 % (27.0-41.0); MEAN CELL VOLUME 90.1 fl (81.0-99.0); MEAN CORPUSCULAR HGB 28.9 pg (27.0-31.0); MEAN CORPUSCULAR HGB CONC 32.1 g/dl (33.0-37.0); MEAN PLATELET VOLUME 9.1 fl (9.6-12.3); MONO # 0.6 10*3/uL (0.1-1.0); MONO % 7.4 % (3.0-9.0); NEUT # 5.8 10*3/uL (2.3-7.9); NEUT % 73.2 % (47.0-73.0); PLATELET COUNT AUTOMATED 275 10*3/uL (130-400); RED BLOOD COUNT 4.36 10*6/uL (4.10-5.10); RED CELL DISTRI WIDTH 12.9 % (0-14.5); WHITE BLOOD COUNT 7.9 10*3/uL (4.8-10.8)
--- NOTE | 2019-11-17 15:00 | NUR ---
SPOKE WITH DR YBARRA, VERBAL ORDERS RECEIVED FOR ATIVAN 1MG PO/IM PRN.
[2019-11-17 15:13] LABS: ALBUMIN 3.3 gm/dl (3.1-4.5); CREATININE 1.15 mg/dL (0.55-1.02)
--- NOTE | 2019-11-17 15:30 | NUR ---
PRN APPEARS EFFECTIVE AT THIS TIME. PT IS RESTING QUIETLY WITH EYES CLOSED.
--- NOTE | 2019-11-17 15:44 | NUR ---
PM GROUP/FINGER PAINTING PT IS UNABLE TO ATTEND OR PARTICIPATE IN GROUP THERAPY AT THIS TIME DUE TO COGNITIVE IMPAIRMENT
[2019-11-17 19:46] VITALS: BP 143/67
--- NOTE | 2019-11-17 20:22 | NUR ---
P--CONFUSION AND HALLUCINATIONS I--TRIED TO REORIENT HER TO PLACE AND TIME. PROVIDED REALITY ORIENTATION. DISCUSSED MEDICATIONS SHE IS ORDERED. PROVIDED SNACK AND FLUIDS. R--UNABLE TO COMPREHEND CONVERSATION. HAVING HALLUCINATION VISUAL AND AUDIO. LOOKING AND TALKING WITH UNSEEN SUBJECTS. CONTINUES TO RUB FINGERS TOGETHER IF SOMETHING WAS ON THEM. (TACTILE) P--MONITOR FOR CHANGES IN MOOD/BEHAVIOR AND SAFETY
--- NOTE | 2019-11-18 03:27 | NUR ---
24 HR chart check completed.
--- NOTE | 2019-11-18 05:54 | NUR ---
SLEPT WELL AFTER BEING PLACED IN MARIA ISABEL CHAIR IN QUIET ROOM ACROSS FROM NURSES USHA. MOVES SELF AROUND IN CHAIR
[2019-11-18 06:24] LABS: BILIRUBIN NEGATIVE (NEGATIVE); BLOOD TRACE-INTACT (NEGATIVE); CLARITY SL CLOUDY (CLEAR); COLOR YELLOW (YELLOW); GLUCOSE NEGATIVE (NEGATIVE); KETONE NEGATIVE (NEGATIVE); LEUKO ESTERASE 3+ (NEGATIVE); NITRITE POSITIVE (NEGATIVE); UROBILINOGEN 0.2 E.U./dl (0.2-1.0)
[2019-11-18 07:16] LABS: BACTERIA 3+; WBC TNTC wbc/hpf (0-5)
--- NOTE | 2019-11-18 07:20 | NUR ---
PHYSICAL THERAPY Patient seen this am for therapy visit and was semi reclined in activity room Cristela chair upon therapist arrival. Patient identified by name / and was joined by OT financial sales assistant for observation only this session. Patient was pleasant and able to follow simple commands this morning, transfering sit to stand with MIN A. Patient ambulates with use of wh walker, MIN A, 20'x 2 to bathroom, demonstrating decreased stride, L side deviation and bouts of unsteady gait pattern. Patient needed v/c for proper hand placemnt prior to sitting, while "plopping" down without warning. Patient returned to Cristela chair in activity room awaiting breakfast with body alarm, under [facility] staff Supervision. Will continue per POC as tolerated, total treatment time 15 minutes. Chavo Odell, PASSPORT SUPPORT MANAGER
--- NOTE | 2019-11-18 07:40 | NUR ---
OT NOTE Pt was seen this A.M. 1:1 for 20 minute OT session with BARREL ASSEMBLER HELPER and nursing staff present for observation only. Upon arrival pt was sitting semi reclined in the isra chair in the dining cantu. Pt identified by name and and had no complaints at this time. Pt was taken to her room where she completed sit to stand from chair level with Cindy X 2 followed by functional mobility into the bathroom with Cindy and use of w/w. There she transferred on/off standard commode with Cindy for assist with sequencing of task and safety concerns. Pt then stood sink side while washing her hands with Cindy for assist with sequencing and throughout pt presented with retrograde posture and L lateral lean that required modA to correct. Functional mobility was then completed back to the isra chair with Cindy and use of w/w. There she was left sitting upright with body alarm activated for safety, lap tray in place, and under [facility] staff supervision. Continue with rec D/C plan to return to [facility] or SNF. MEAGHAN Bourgeois/Syed
[2019-11-18 07:53] VITALS: BP 151/78
--- NOTE | 2019-11-18 08:00 | NUR ---
Patient eating quietly with no c/o discomfort. Respirations easy and regular. Vital signs stable. No overt distress. REYNA PIERCE
--- NOTE | 2019-11-18 08:00 | NUR ---
Treatment Plan meeting was held with BENNY Louis, RN, AT, DRAWER LINER-S and Design Intern in attendance. Plan for discharge next week with plan to return to [facility].
--- NOTE | 2019-11-18 11:37 | NUR ---
AM GROUP PT WAS PRESENT FOR MORNING GROUP THERAPY RECLINED IN A MARIA ISABEL CHAIR SLEEPING. PT DID NOT WAKE DURING GROUP BUT WAS NOTED TO BE SNORING LOUDLY.
--- NOTE | 2019-11-18 14:54 | NUR ---
PHYSICAL THERAPY CO-SIGN I approve of the Physical Therapy notes written above. Bertha Pedro PT
--- NOTE | 2019-11-18 14:55 | NUR ---
OCCUPATIONAL THERAPY CO-SIGN I approve of the Occupational Therapy notes written above. Clarisa Sharma, OTR/L
--- NOTE | 2019-11-18 16:25 | NUR ---
Clinical Updates faxed to [facility].
[2019-11-18 20:00] VITALS: BP 124/76
--- NOTE | 2019-11-19 03:04 | NUR ---
p: AGITATIED WITH STAFF DURING ADL CARE I: PT HAS BEEN 1:1 WITH EDUCATION ON THE IMPORTANTANCE OF LETTING STAFF HELP HER WITH HER ADL CARE. PT WAS REORIENTANTED AND GIVEN TIME DURING HER ADL CARES. R: PT WAS LESS AGITATED WITH LOTS OF ENCOURAGEMENT. PT IS ORIENTATED TO PERSON AND PLACE, MOOD IS STABLE . P: CONTINUE TO MONITOR FOR AGITATION, 1:1 WITH ENCOURAGEMENT WITH ADL CARE,CONTINUE TO MONITOR FOR SIGNS OF HI/SI, WILL CONT. TO MONITOR Q 15 MIN. CHECKS PER POLICEY FOR SAFETY.
[2019-11-19 07:41] VITALS: BP 121/46
--- NOTE | 2019-11-19 11:46 | NUR ---
AM GROUP/KYLIE PT ATTENDED BUT UNABLE TO PARTICIPATE DUE TO SLEEPING IN CHAIR AND LEVELS OF CONFUSION. PT WILL CONTINUE TO ATTEND FUTURE GROUP SESSIONS.
--- NOTE | 2019-11-19 15:41 | NUR ---
ALERT TO PERSON WITH CONFUSION NOTED. HOPELESS/HELPLESS. PT STATING SHE CAN NOT SEE HOWEVER WILL NOT OPEN EYES TO LOOK. EYE GTTS APPLIED DURING AM MED PASS. MEDICATION COMPLIANT. UNABLE TO PROVIDE MEDICATION EDUCATION DUE TO COGNITIVE IMPAIRMENT. DENIES SI/HI. NO HALLUCINATIONS OR DELUSIONS NOTED. BEHAVIORS MONITORED WITH Q15 MINUTE SAFETY CHECKS. SEE [facility] FLOWSHEET FOR SPECIFIC MONITORING.
--- NOTE | 2019-11-19 15:57 | NUR ---
PM GROUP/ART/GAME PT ATTENDED BUT DID NOT PARTICIPATE DUE TO RESTING IN CHAIR ENTIRE GROUP.
[2019-11-19 20:00] VITALS: BP 119/57
--- NOTE | 2019-11-20 01:09 | NUR ---
P: DURING MED PASS PT WAS ANXIOUS I: OFFERED FOOD AND DRINKS, 1:1 EMOTIONAL SUPPORT, ENCOURAGED TO VERBALIZE THOUGHTS/FEELING, MEDICATION ADMINISTERED PER ORDERED. R: PATIENT IS ALERT TO PERSON AND PLACE, ABLE TO VOICE NEEDS. MOOD IS STABLED VISH ANY HI/SI OR PAIN. MEDICATION COMPLAINT, Q 15 MINUTE SAFETY CHECKS. P: WILL CONTINUE TO PROVIDE 1:1 EMOTIONAL SUPPORT, PT TO VERBALIZE THOUGHTS AND FEELINGS.
--- NOTE | 2019-11-20 06:39 | NUR ---
PT WAS STRAIGHT CATH AT 0620 PER ORDER. 275 CC WITH DARK COLOR URINE. PT TOLERATED WELL WITH NO COMPLAINTS OF PAIN NOTED. PT HAD OUT BURST OF YELLING, VULGAR LANUAGE AND SINGING OUT LOUD. PT DID SLEEP 4 HOURS DURING MDS NURSE.
--- NOTE | 2019-11-20 06:54 | NUR ---
PT HAS BEEN IN HER ROOM DURING PRINCIPAL INVESTIGATOR WITH 8 HOURS UNINTERRUPED.
[2019-11-20 08:01] VITALS: BP 106/64
[2019-11-20] MEDS ORDERED: EXEL13.31 T (08:38)
[2019-11-20] MEDS ORDERED: NAMENDA10 MG PO (09:47)
[2019-11-20] MEDS ORDERED: RISPERDAL1 M1 PO (09:47)
[2019-11-20] MEDS ORDERED: ROZEREM8 MG PO (09:48)
[2019-11-20] MEDS ORDERED: CYMBALTA60 MG PO (09:48)
--- NOTE | 2019-11-20 10:05 | NUR ---
PT DISCHARGED TO ROOM 522. NURSE TO NURSE GIVEN TO OZ. AIMEE BEE, NOTIFIED PT WAS BEING DISCHARGED TO 5TH FLOOR AT 0830. VS WNL. AM MEDICATIONS GIVEN. SKIN INTACT. NO ADVERSE MOODS OR BEHAVIORS NOTED TODAY.
== END 2019-11-20 09:58 | disposition short-term general hospital (02) | DRG 883 ==
LOC: 3N 14:32
PROVIDERS: Internal Medicine; ADMIT Psychiatry & Neurology Psychiatry
DX: F63.81 Intermittent explosive disorder (principal); F02.81 Dementia in other diseases classified elsewhere, unspecified severity, with behavioral disturbance; N30.00 Acute cystitis without hematuria; F33.3 Major depressive disorder, recurrent, severe with psychotic symptoms; J43.9 Emphysema, unspecified; N18.3 Chronic kidney disease, stage 3 (moderate); R82.71 Bacteriuria; H50.10 Unspecified exotropia; G30.9 Alzheimer's disease, unspecified; E78.5 Hyperlipidemia, unspecified; F17.210 Nicotine dependence, cigarettes, uncomplicated; E03.9 Hypothyroidism, unspecified; I12.9 Hypertensive chronic kidney disease with stage 1 through stage 4 chronic kidney disease, or unspecified chronic kidney disease; M19.90 Unspecified osteoarthritis, unspecified site; M25.551 Pain in right hip; R31.21 Asymptomatic microscopic hematuria; E87.8 Other disorders of electrolyte and fluid balance, not elsewhere classified; H54.61 Unqualified visual loss, right eye, normal vision left eye; Z96.641 Presence of right artificial hip joint; G89.29 Other chronic pain; Z79.899 Other long term (current) drug therapy; Z82.49 Family history of ischemic heart disease and other diseases of the circulatory system

== ENCOUNTER 2019-11-20 10:07 | Inpatient (IN) | payer MEDICARE ==
[~2019-11-20] VITALS: Ht 167.6 cm; Wt 55.3 kg
[~2019-11-20 10:07] MED LIST changes: +CYMBALTA60 MG PO; +EFFEXOR-XR75 MG PO; +EXEL13.31 T; +NAMENDA10 MG PO; +RISPERDAL1 M1 PO; +ROZEREM8 MG PO
[2019-11-20 10:20] VITALS: BP 127/58
[2019-11-20 16:00] VITALS: BP 134/50
[2019-11-20 20:00] VITALS: BP 126/51
[2019-11-21] VITALS: BP 124/50
[2019-11-21 06:42] LABS: BASO % 0.3 % (0.0-1.0); EOS # 0.1 10*3/uL (0.0-0.4); EOS % 1.2 % (1.0-4.0); HEMATOCRIT 36.2 % (37.0-47.0); HEMOGLOBIN 11.3 g/dl (12.0-16.0); LYMPH # 1.8 10*3/uL (1.3-4.4); LYMPH % 18.1 % (27.0-41.0); MEAN CELL VOLUME 92.1 fl (81.0-99.0); MEAN CORPUSCULAR HGB 28.8 pg (27.0-31.0); MEAN CORPUSCULAR HGB CONC 31.2 g/dl (33.0-37.0); MEAN PLATELET VOLUME 9.3 fl (9.6-12.3); MONO # 0.8 10*3/uL (0.1-1.0); MONO % 8.3 % (3.0-9.0); NEUT # 6.9 10*3/uL (2.3-7.9); NEUT % 71.7 % (47.0-73.0); PLATELET COUNT AUTOMATED 266 10*3/uL (130-400); RED BLOOD COUNT 3.93 10*6/uL (4.10-5.10); RED CELL DISTRI WIDTH 12.9 % (0-14.5); WHITE BLOOD COUNT 9.7 10*3/uL (4.8-10.8)
[2019-11-21 06:53] LABS: CREATININE 1.11 mg/dL (0.55-1.02); PHOSPHOROUS 3.3 mg/dL (2.5-4.9); POTASSIUM 3.9 mmol/L (3.5-5.1)
[2019-11-21 07:03] LABS: ACT PARTIAL THROMBO TIME 25.1 SECONDS (20.0-32.1); INTERNATIONAL NORM RATIO 0.9 (2.0-3.5)
[2019-11-21 08:00] VITALS: BP 119/58
[2019-11-21 12:00] VITALS: BP 126/58
[2019-11-21 16:00] VITALS: BP 147/52
[2019-11-21 20:00] VITALS: BP 131/60
[2019-11-22] VITALS: BP 127/51
[2019-11-22 07:10] LABS: ALBUMIN 2.7 gm/dl (3.1-4.5); ALKALINE PHOSPHATASE 72 U/L (45-117); BUN 25 mg/dl (7-24); CHLORIDE 106 mmol/L (98-107); CREATININE 0.98 mg/dL (0.55-1.02); PHOSPHOROUS 2.8 mg/dL (2.5-4.9); POTASSIUM 3.6 mmol/L (3.5-5.1); SGOT/AST 16 IU/L (3-35); SGPT/ALT 15 U/L (12-78); SODIUM 142 mmol/L (136-145); TOTAL PROTEIN 5.8 gm/dL (6.4-8.2)
[2019-11-22 08:00] VITALS: BP 137/67
[2019-11-22 12:00] VITALS: BP 98/49
[2019-11-22 16:00] VITALS: BP 112/49
[2019-11-22 20:00] VITALS: BP 147/61
[2019-11-23] VITALS (7 sets, daily range): BP systolic 102–147; BP diastolic 48–76
[2019-11-24 06:34] LABS: BASO % 0.4 % (0.0-1.0); EOS # 0.1 10*3/uL (0.0-0.4); EOS % 1.6 % (1.0-4.0); HEMATOCRIT 37.2 % (37.0-47.0); HEMOGLOBIN 11.6 g/dl (12.0-16.0); LYMPH # 1.5 10*3/uL (1.3-4.4); LYMPH % 22.2 % (27.0-41.0); MEAN CELL VOLUME 91.2 fl (81.0-99.0); MEAN CORPUSCULAR HGB 28.4 pg (27.0-31.0); MEAN CORPUSCULAR HGB CONC 31.2 g/dl (33.0-37.0); MEAN PLATELET VOLUME 9.1 fl (9.6-12.3); MONO # 0.6 10*3/uL (0.1-1.0); NEUT # 4.6 10*3/uL (2.3-7.9); NEUT % 66.5 % (47.0-73.0); PLATELET COUNT AUTOMATED 262 10*3/uL (130-400); RED BLOOD COUNT 4.08 10*6/uL (4.10-5.10); RED CELL DISTRI WIDTH 12.8 % (0-14.5); WHITE BLOOD COUNT 6.9 10*3/uL (4.8-10.8)
[2019-11-24 08:00] VITALS: BP 98/60
[2019-11-24 12:00] VITALS: BP 93/50
[2019-11-24 13:00] VITALS: BP 110/64
[2019-11-24 16:00] VITALS: BP 99/49
[2019-11-24 20:00] VITALS: BP 102/52
[2019-11-25] VITALS: BP 117/52
[2019-11-25 06:42] LABS: CREATININE 0.98 mg/dL (0.55-1.02)
[2019-11-25 08:00] VITALS: BP 97/50
[2019-11-25] MEDS ORDERED: SEPTDS PO ×2 (09:16→10:35)
[2019-12-05] MEDS ORDERED: NORCO 5-325 TA1 EACH PO (11:18)
[2019-12-05] MEDS ORDERED: XANAX0.25 MG PO (11:18)
== END 2019-11-25 12:54 | disposition home or self-care (01) | DRG 689 ==
LOC: 5E 10:07
PROVIDERS: Hospitalist; Registered Nurse; ADMIT Internal Medicine
DX: N39.0 Urinary tract infection, site not specified (principal); G93.41 Metabolic encephalopathy; Z16.12 Extended spectrum beta lactamase (ESBL) resistance; F02.81 Dementia in other diseases classified elsewhere, unspecified severity, with behavioral disturbance; F33.3 Major depressive disorder, recurrent, severe with psychotic symptoms; F63.81 Intermittent explosive disorder; R73.9 Hyperglycemia, unspecified; E87.8 Other disorders of electrolyte and fluid balance, not elsewhere classified; B96.20 Unspecified Escherichia coli [E. coli] as the cause of diseases classified elsewhere; D52.9 Folate deficiency anemia, unspecified; Z66 Do not resuscitate; Z51.5 Encounter for palliative care; E03.9 Hypothyroidism, unspecified; E78.2 Mixed hyperlipidemia; N18.3 Chronic kidney disease, stage 3 (moderate); I12.9 Hypertensive chronic kidney disease with stage 1 through stage 4 chronic kidney disease, or unspecified chronic kidney disease; M19.91 Primary osteoarthritis, unspecified site; J43.9 Emphysema, unspecified; G30.9 Alzheimer's disease, unspecified; H54.61 Unqualified visual loss, right eye, normal vision left eye; Z96.641 Presence of right artificial hip joint; Z82.49 Family history of ischemic heart disease and other diseases of the circulatory system; Z79.82 Long term (current) use of aspirin; Z79.899 Other long term (current) drug therapy

== ENCOUNTER 2019-12-02 11:05 | Inpatient (IN) | payer MEDICARE ==
[~2019-12-02] VITALS: Ht 167.6 cm; Wt 56.2 kg
[~2019-12-02 11:05] MED LIST changes: +SEPTDS PO
--- NOTE | 2019-12-02 11:29 | NUR ---
A SMALL 1CM SKIN TEAR IS OBSERVED ON RIGHT WRIST UPON REMOVAL OF SWEATER. EVDIENCE OF DRIED BLOOD INSIDE THE SLEEVE. PHOTO DOCUMENTATION PERFORMED.
[2019-12-02 11:31] VITALS: BP 120/64
[2019-12-02 11:32] LABS: BASO % 0.2 % (0.0-1.0); EOS # 0.2 10*3/uL (0.0-0.4); EOS % 1.8 % (1.0-4.0); HEMATOCRIT 35.1 % (37.0-47.0); HEMOGLOBIN 11.3 g/dl (12.0-16.0); LYMPH # 1.1 10*3/uL (1.3-4.4); LYMPH % 12.6 % (27.0-41.0); MEAN CELL VOLUME 89.5 fl (81.0-99.0); MEAN CORPUSCULAR HGB 28.8 pg (27.0-31.0); MEAN CORPUSCULAR HGB CONC 32.2 g/dl (33.0-37.0); MEAN PLATELET VOLUME 9.3 fl (9.6-12.3); MONO # 0.8 10*3/uL (0.1-1.0); MONO % 8.6 % (3.0-9.0); NEUT # 6.8 10*3/uL (2.3-7.9); NEUT % 76.6 % (47.0-73.0); PLATELET COUNT AUTOMATED 232 10*3/uL (130-400); RED BLOOD COUNT 3.92 10*6/uL (4.10-5.10); RED CELL DISTRI WIDTH 12.9 % (0-14.5); WHITE BLOOD COUNT 8.8 10*3/uL (4.8-10.8)
[2019-12-02 12:08] LABS: BILIRUBIN NEGATIVE (NEGATIVE); BLOOD TRACE-INTACT (NEGATIVE); CLARITY SL CLOUDY (CLEAR); COLOR YELLOW (YELLOW); GLUCOSE NEGATIVE (NEGATIVE); KETONE NEGATIVE (NEGATIVE); LEUKO ESTERASE 2+ (NEGATIVE); NITRITE NEGATIVE (NEGATIVE); UROBILINOGEN 0.2 E.U./dl (0.2-1.0)
[2019-12-02 12:13] LABS: BACTERIA 1+; MUCOUS 1+
[2019-12-02 12:30] LABS: ALBUMIN 3.1 gm/dl (3.1-4.5); CREATININE 1.51 mg/dL (0.55-1.02); POTASSIUM 4.1 mmol/L (3.5-5.1); TOTAL PROTEIN 6.4 gm/dL (6.4-8.2)
[2019-12-02 14:35] VITALS: BP 116/64
--- NOTE | 2019-12-02 15:05 | NUR ---
NURSE REPORT TO DAI CASTRO RN, FOR COMNTINUATION OF CARE
--- NOTE | 2019-12-02 15:53 | NUR ---
PT IS RESTING COMFORTABLY IN BED.
[2019-12-02 16:29] VITALS: BP 127/59
[2019-12-02 16:30] VITALS: BP 127/59
--- NOTE | 2019-12-02 16:30 | NUR ---
A 84, admitted to 5E, under the services of MAUDE Vieira DO with a diagnosis of UTI, CHANGE IN MENTAL STATUS. Chief complaint is CHANGE IN MENTAL STATUS. Patient arrived via bed from ER. Monitor applied. Initial assessment completed. Vital signs taken and recorded. MAUDE VIEIRA DO notified of admission to the unit. Orders received. See assessment for past medical history, medications and allergies. Patient and/or family oriented to unit. [facility] visitation policy reviewed. Clothing/patient valuable form completed. TIM GRACE
--- NOTE | 2019-12-02 17:51 | NUR ---
PT HAS BRUISING TO BILATERAL LOWER EXTREMITIES AND BILATERAL ARMS. NO WOUNDS ON BUTTOCKS AT THIS TIME.
--- NOTE | 2019-12-02 17:53 | NUR ---
DR. LEBLANC NOTIFIED OF WOUNDS AND NEED FOR ORDERS. ORDERED SKIN TEAR GUIDELINES
[2019-12-02] MEDS ORDERED: LEVOTHYROXINE75 MCG PO (17:57)
[2019-12-02] MEDS ORDERED: XANAX0.25 MG PO (18:00)
--- NOTE | 2019-12-02 18:09 | NUR ---
MESSAGE LEFT WITH DR. LUIS'S ANSWERING SERVICE ABOUT CONSULT
--- NOTE | 2019-12-02 18:11 | NUR ---
U NOTIFIED OF CONSULT FOR DR. YBARRA.
--- NOTE | 2019-12-02 18:32 | NUR ---
PT SLEEPING AT THIS TIME.
--- NOTE | 2019-12-02 19:31 | NUR ---
PATIENT SLEEPING AT THIS TIME, SNORING RESPIRATIONS EASY AND REGLAR ON SUPPLEMENTAL O2, NO DISTRESS. BED IN LOWEST, LOCKED POSITION, BED ALARM MAINTAINED FOR SAFETY.
[2019-12-02 20:00] VITALS: BP 115/58
[2019-12-03] VITALS: BP 142/62
[2019-12-03 06:23] LABS: BASO % 0.4 % (0.0-1.0); EOS # 0.2 10*3/uL (0.0-0.4); EOS % 2.8 % (1.0-4.0); HEMOGLOBIN 10.3 g/dl (12.0-16.0); LYMPH # 1.2 10*3/uL (1.3-4.4); LYMPH % 14.9 % (27.0-41.0); MEAN CELL VOLUME 91.2 fl (81.0-99.0); MEAN CORPUSCULAR HGB 28.5 pg (27.0-31.0); MEAN CORPUSCULAR HGB CONC 31.2 g/dl (33.0-37.0); MEAN PLATELET VOLUME 9.7 fl (9.6-12.3); MONO # 0.8 10*3/uL (0.1-1.0); MONO % 9.8 % (3.0-9.0); NEUT # 5.6 10*3/uL (2.3-7.9); NEUT % 71.8 % (47.0-73.0); PLATELET COUNT AUTOMATED 227 10*3/uL (130-400); RED BLOOD COUNT 3.62 10*6/uL (4.10-5.10); RED CELL DISTRI WIDTH 12.8 % (0-14.5); WHITE BLOOD COUNT 7.8 10*3/uL (4.8-10.8)
[2019-12-03 06:44] LABS: ALBUMIN 2.8 gm/dl (3.1-4.5); ALKALINE PHOSPHATASE 69 U/L (45-117); BUN 18 mg/dl (7-24); CHLORIDE 111 mmol/L (98-107); CREATININE 1.06 mg/dL (0.55-1.02); PHOSPHOROUS 3.4 mg/dL (2.5-4.9); POTASSIUM 4.2 mmol/L (3.5-5.1); SGOT/AST 17 IU/L (3-35); SGPT/ALT 21 U/L (12-78); SODIUM 141 mmol/L (136-145); TOTAL PROTEIN 5.7 gm/dL (6.4-8.2)
--- NOTE | 2019-12-03 07:30 | NUR ---
PT RESTING WITH EYES CLOSED, STATES NO NEEDS AT THIS TIME.
[2019-12-03 08:00] VITALS: BP 120/54
--- NOTE | 2019-12-03 08:37 | NUR ---
PT EATING BREAKFAST. NO NEEDS AT THIS TIME
--- NOTE | 2019-12-03 09:11 | NUR ---
DR. FAITH IN TO SEE PATIENT. DISCUSS WEAVER WITH HIM, WILL D/C WEAVER. PT HAL, COORPORATIVE.
--- NOTE | 2019-12-03 09:44 | NUR ---
case management visits with patient, she is a resident of [facility] and is a 30 days readmission to the hospital, case management/digital media planner will monitor patient's progress and contact [facility] to see if patient is able to return when medically stable
--- NOTE | 2019-12-03 11:37 | NUR ---
WEAVER D/C, CATH INTACT. PT TOLERATED WELL.
[2019-12-03 12:00] VITALS: BP 102/54
--- NOTE | 2019-12-03 15:40 | NUR ---
PT PULLED OUT IV IN RIGHT ARM, DRESSING OFF RIGHT FA SKIN TEAR. SKIN TEAR HYDROGEL AND OPTIFOAM PLACED. IV RESTARTED ON SECOND ATTEMPT LEFT AC #22, GOOD BLOOD RETURN AND PT TOLERATED FAIR. IV LEFT AC WRAPPED TO PROTECT FROM PATIENT ACCIDENTAL PULLING IT OUT
[2019-12-03 16:00] VITALS: BP 115/62
--- NOTE | 2019-12-03 16:11 | NUR ---
PT YELLING OUT, COMPLAINING OF RIGHT HIP PAIN. NORCO GIVEN.
--- NOTE | 2019-12-03 18:33 | NUR ---
PER JOSIAH FAROOQ NP. PLACE PATIENT IN CONTACT ISOLATION.
--- NOTE | 2019-12-03 19:49 | NUR ---
PATIENT IS ALERT AND ORIENTED TO PERSON, RESTING IN BED WITH FAMILY AT BEDSIDE. ASSESSMENT IS COMPLETE WITH NO C/O OR S/S OF DISTRESS NOTED AT THIS TIME. BED IS LOW, LOCKED, ALARMED, AND CALL LIGHT IS WITHIN REACH. WILL CONTINUE TO MONITOR.
[2019-12-03 20:00] VITALS: BP 123/56
[2019-12-04] VITALS: BP 138/72
--- NOTE | 2019-12-04 03:09 | NUR ---
CHART CHECK COMPLETE.
--- NOTE | 2019-12-04 04:00 | NUR ---
PATIENT AWAKE MOST OF NIGHT, YELLING OUT FOR . PATIENT THINKS SHE IS AT HOME. REORIENTS EASILY. BED IS LOW, LOCKED, ALARMED, AND CALL LIGHT IS WITHIN REACH.
--- NOTE | 2019-12-04 05:36 | NUR ---
0600 MEDICATION GIVEN. NO C/O VOICED AT THIS TIME. CALL LIGHT IS WITHIN REACH.
[2019-12-04 06:25] LABS: BASO % 0.5 % (0.0-1.0); CREATININE 1.11 mg/dL (0.55-1.02); EOS # 0.2 10*3/uL (0.0-0.4); EOS % 4.2 % (1.0-4.0); HEMATOCRIT 31.9 % (37.0-47.0); HEMOGLOBIN 9.9 g/dl (12.0-16.0); LYMPH # 1.2 10*3/uL (1.3-4.4); LYMPH % 21.2 % (27.0-41.0); MEAN CELL VOLUME 91.7 fl (81.0-99.0); MEAN CORPUSCULAR HGB 28.4 pg (27.0-31.0); MEAN PLATELET VOLUME 9.7 fl (9.6-12.3); MONO # 0.7 10*3/uL (0.1-1.0); MONO % 11.3 % (3.0-9.0); NEUT # 3.6 10*3/uL (2.3-7.9); NEUT % 62.6 % (47.0-73.0); PLATELET COUNT AUTOMATED 212 10*3/uL (130-400); POTASSIUM 3.8 mmol/L (3.5-5.1); RED BLOOD COUNT 3.48 10*6/uL (4.10-5.10); RED CELL DISTRI WIDTH 12.8 % (0-14.5); WHITE BLOOD COUNT 5.8 10*3/uL (4.8-10.8)
--- NOTE | 2019-12-04 07:30 | NUR ---
IV started left antecubital with #22 angiocath after 1 attempts. The IV site was prepped with Chloraprep. Heparin lock attached. Sterile dressing applied. Patient tolerated precedure well. Procedure performed according to [facility] policy & procedure. NIKOLAI BRAVO
[2019-12-04 08:00] VITALS: BP 115/45
--- NOTE | 2019-12-04 09:42 | NUR ---
spoke to the nurse at [facility], she is going to call her concession supervisor and make sure it is okay for patient to come back today. she will call me back.
--- NOTE | 2019-12-04 10:17 | NUR ---
PER ENLOE RN, SHE SPOKE TO HER MILLED RUBBER TENDER CHER AND PATIENT IS OKAY TO RETURN TODAY. DR. FAITH NOTIFIED.
--- NOTE | 2019-12-04 11:22 | NUR ---
spoke to shashi zhang, okay with her to transport patient back to [facility].
--- NOTE | 2019-12-04 13:04 | NUR ---
PATIENT ARELI ROQUE HERE TO CRISIS INTERVENTION COUNSELOR PATIENT AND RETURN TO [facility]. [facility] NOTIFIED PATIENT WILL BE RETURNING NOW. NO QUESTIONS ON DISCHARGE.
--- NOTE | 2019-12-04 13:06 | NUR ---
REVIEWED DISCHARGE INSTRUCTIONS, NO QUESTIONS AT THIS TIME. PT HAD TAKEN OUT IV LEFT AC. PATIENTS NIECE DID NOT WANT BANDAIDS ON KEES TAKEN OFF FOR PICTURES AND REFUSED OTHER PICTURES. DRESSING APPLIED TO RIGHT FA SKIN TEAR, [facility] NOTIFIED OF WOUNDS. PATIENT DISCHARGED BY WHEELCHAIR
[2019-12-05] MEDS ORDERED: XANAX0.25 MG PO (11:18)
[2019-12-05] MEDS ORDERED: NORCO 5-325 TA1 EACH PO (11:18)
== END 2019-12-04 13:11 | disposition home or self-care (01) | DRG 682 ==
LOC: ED 11:05 → EDHOLD 15:02 → 5E 15:59
PROVIDERS: Emergency Medicine; Internal Medicine; Student in an Organized Health Care Education/Training Program; ADMIT Internal Medicine
DX: N17.0 Acute kidney failure with tubular necrosis (principal); G93.41 Metabolic encephalopathy; N39.0 Urinary tract infection, site not specified; F03.91 Unspecified dementia, unspecified severity, with behavioral disturbance; E86.0 Dehydration; R31.9 Hematuria, unspecified; E87.8 Other disorders of electrolyte and fluid balance, not elsewhere classified; E03.9 Hypothyroidism, unspecified; E78.5 Hyperlipidemia, unspecified; D64.9 Anemia, unspecified; I12.9 Hypertensive chronic kidney disease with stage 1 through stage 4 chronic kidney disease, or unspecified chronic kidney disease; N18.3 Chronic kidney disease, stage 3 (moderate); R44.1 Visual hallucinations; Z79.82 Long term (current) use of aspirin; Z79.899 Other long term (current) drug therapy; Z96.641 Presence of right artificial hip joint; Z82.49 Family history of ischemic heart disease and other diseases of the circulatory system; G89.29 Other chronic pain

== ENCOUNTER 2020-03-09 20:30 | Emergency (ER) | payer MEDICARE ==
[~2020-03-09] VITALS: Ht 162.5 cm; Wt 55.3 kg
[~2020-03-09 20:30] MED LIST changes: +LEVOTHYROXINE75 MCG PO; +XANAX0.25 MG PO
[2020-03-09 21:35] LABS: BASO % 0.4 % (0.0-1.0); EOS # 0.5 10*3/uL (0.0-0.4); EOS % 6.4 % (1.0-4.0); LYMPH # 1.3 10*3/uL (1.3-4.4); LYMPH % 15.9 % (27.0-41.0); MEAN CELL VOLUME 88.1 fl (81.0-99.0); MEAN CORPUSCULAR HGB CONC 31.8 g/dl (33.0-37.0); MEAN PLATELET VOLUME 8.9 fl (9.6-12.3); MONO # 0.7 10*3/uL (0.1-1.0); MONO % 8.1 % (3.0-9.0); NEUT # 5.6 10*3/uL (2.3-7.9); NEUT % 68.7 % (47.0-73.0); PLATELET COUNT AUTOMATED 254 10*3/uL (130-400); RED BLOOD COUNT 4.54 10*6/uL (4.10-5.10); RED CELL DISTRI WIDTH 12.5 % (0-14.5); WHITE BLOOD COUNT 8.1 10*3/uL (4.8-10.8)
[2020-03-09 21:55] LABS: ALKALINE PHOSPHATASE 71 U/L (45-117); BUN 18 mg/dl (7-24); CHLORIDE 104 mmol/L (98-107); CREATININE 1.08 mg/dL (0.55-1.02); POTASSIUM 3.8 mmol/L (3.5-5.1); SGOT/AST 19 IU/L (3-35); SGPT/ALT 17 U/L (12-78); SODIUM 140 mmol/L (136-145); TOTAL PROTEIN 6.5 gm/dL (6.4-8.2)
[2020-03-09 22:02] LABS: TROPONIN I < 0.015 ng/ml (<0.045)
== END 2020-03-09 22:46 ==
LOC: ED 20:30
PROVIDERS: Emergency Medicine Emergency Medical Services
DX: S80.12XA Contusion of left lower leg, initial encounter (principal); I12.9 Hypertensive chronic kidney disease with stage 1 through stage 4 chronic kidney disease, or unspecified chronic kidney disease; N18.3 Chronic kidney disease, stage 3 (moderate); F32.9 Major depressive disorder, single episode, unspecified; E78.5 Hyperlipidemia, unspecified; E03.9 Hypothyroidism, unspecified; Z79.2 Long term (current) use of antibiotics; Z79.899 Other long term (current) drug therapy; Z79.82 Long term (current) use of aspirin; W19.XXXA Unspecified fall, initial encounter; Y93.89 Activity, other specified; Y92.129 Unspecified place in nursing home as the place of occurrence of the external cause; Y99.8 Other external cause status

== ENCOUNTER 2020-03-23 18:59 | Emergency (ER) | payer MEDICARE ==
[2020-03-23 20:02] LABS: BASO % 0.4 % (0.0-1.0); EOS # 0.6 10*3/uL (0.0-0.4); EOS % 6.6 % (1.0-4.0); LYMPH % 10.8 % (27.0-41.0); MEAN CELL VOLUME 85.8 fl (81.0-99.0); MEAN CORPUSCULAR HGB 27.7 pg (27.0-31.0); MEAN CORPUSCULAR HGB CONC 32.3 g/dl (33.0-37.0); MEAN PLATELET VOLUME 9.1 fl (9.6-12.3); MONO # 0.7 10*3/uL (0.1-1.0); NEUT # 7.2 10*3/uL (2.3-7.9); NEUT % 74.6 % (47.0-73.0); PLATELET COUNT AUTOMATED 303 10*3/uL (130-400); RED BLOOD COUNT 4.66 10*6/uL (4.10-5.10); RED CELL DISTRI WIDTH 12.3 % (0-14.5); WHITE BLOOD COUNT 9.6 10*3/uL (4.8-10.8)
[2020-03-23 20:12] LABS: ACT PARTIAL THROMBO TIME 26.5 SECONDS (20.0-32.1)
[2020-03-23 20:17] LABS: ALBUMIN 3.1 gm/dl (3.1-4.5); CREATININE 1.07 mg/dL (0.55-1.02); POTASSIUM 3.7 mmol/L (3.5-5.1); TOTAL PROTEIN 6.8 gm/dL (6.4-8.2)
[2020-03-23 20:20] LABS: TROPONIN I 0.057 ng/ml (<0.045)
[2020-03-23 23:53] LABS: BILIRUBIN NEGATIVE (NEGATIVE); CLARITY SL CLOUDY (CLEAR); COLOR YELLOW (YELLOW); GLUCOSE NEGATIVE (NEGATIVE); KETONE NEGATIVE (NEGATIVE); SPECIFIC GRAVITY 1.025 (1.005-1.030)
[2020-03-23 23:54] LABS: BACTERIA TRACE; BLOOD NEGATIVE (NEGATIVE); CALCIUM OXALATE CRYSTALS 2+; LEUKO ESTERASE NEGATIVE (NEGATIVE); NITRITE NEGATIVE (NEGATIVE); RBC 0-2 rbc/hpf (0-2); UROBILINOGEN 0.2 E.U./dl (0.2-1.0); WBC 0-2 wbc/hpf (0-5)
== END 2020-03-23 23:35 | disposition other institution (70) ==
LOC: ED 18:59
PROVIDERS: Emergency Medicine Emergency Medical Services
DX: S80.02XA Contusion of left knee, initial encounter (principal); S80.12XA Contusion of left lower leg, initial encounter; F03.90 Unspecified dementia, unspecified severity, without behavioral disturbance, psychotic disturbance, mood disturbance, and anxiety; I10 Essential (primary) hypertension; M19.90 Unspecified osteoarthritis, unspecified site; I12.9 Hypertensive chronic kidney disease with stage 1 through stage 4 chronic kidney disease, or unspecified chronic kidney disease; N18.3 Chronic kidney disease, stage 3 (moderate); E03.9 Hypothyroidism, unspecified; E78.5 Hyperlipidemia, unspecified; Z79.2 Long term (current) use of antibiotics; Z79.899 Other long term (current) drug therapy; Z79.82 Long term (current) use of aspirin; X58.XXXA Exposure to other specified factors, initial encounter; Y93.89 Activity, other specified; Y92.89 Other specified places as the place of occurrence of the external cause; Y99.8 Other external cause status

== ENCOUNTER 2020-06-01 19:23 | Emergency (ER) | payer MEDICARE ==
[~2020-06-01] VITALS: Ht 165.1 cm; Wt 50.0 kg
[2020-06-01 20:24] LABS: BASO % 0.3 % (0.0-1.0); EOS # 0.4 10*3/uL (0.0-0.4); EOS % 3.8 % (1.0-4.0); HEMATOCRIT 38.8 % (37.0-47.0); LYMPH # 0.9 10*3/uL (1.3-4.4); LYMPH % 8.2 % (27.0-41.0); MEAN CELL VOLUME 87.6 fl (81.0-99.0); MEAN CORPUSCULAR HGB 27.1 pg (27.0-31.0); MEAN CORPUSCULAR HGB CONC 30.9 g/dl (33.0-37.0); MEAN PLATELET VOLUME 8.5 fl (9.6-12.3); MONO # 0.7 10*3/uL (0.1-1.0); MONO % 6.7 % (3.0-9.0); NEUT # 8.9 10*3/uL (2.3-7.9); NEUT % 80.6 % (47.0-73.0); PLATELET COUNT AUTOMATED 348 10*3/uL (130-400); RED BLOOD COUNT 4.43 10*6/uL (4.10-5.10); RED CELL DISTRI WIDTH 13.4 % (0-14.5)
[2020-06-01 20:35] LABS: ACT PARTIAL THROMBO TIME 27.1 SECONDS (20.0-32.1)
[2020-06-01 20:39] LABS: ALBUMIN 2.8 gm/dl (3.1-4.5); ALKALINE PHOSPHATASE 81 U/L (45-117); BUN 17 mg/dl (7-24); CHLORIDE 105 mmol/L (98-107); CREATININE 0.89 mg/dL (0.55-1.02); POTASSIUM 3.6 mmol/L (3.5-5.1); SGOT/AST 10 IU/L (3-35); SGPT/ALT 10 U/L (12-78); SODIUM 140 mmol/L (136-145); TOTAL PROTEIN 6.9 gm/dL (6.4-8.2)
[2020-06-01] MEDS ORDERED: CILOXAN 5 ML5 ML OPH ×2 (22:16→22:18)
== END 2020-06-01 22:55 | disposition home or self-care (01) ==
LOC: ED 19:23
PROVIDERS: Nurse Practitioner Family
DX: S01.81XA Laceration without foreign body of other part of head, initial encounter (principal); E78.5 Hyperlipidemia, unspecified; E03.9 Hypothyroidism, unspecified; M19.90 Unspecified osteoarthritis, unspecified site; I12.9 Hypertensive chronic kidney disease with stage 1 through stage 4 chronic kidney disease, or unspecified chronic kidney disease; N18.3 Chronic kidney disease, stage 3 (moderate); R79.1 Abnormal coagulation profile; Z79.899 Other long term (current) drug therapy; Z79.82 Long term (current) use of aspirin; W18.39XA Other fall on same level, initial encounter; Y93.89 Activity, other specified; Y92.89 Other specified places as the place of occurrence of the external cause; Y99.8 Other external cause status

== ENCOUNTER 2020-06-20 23:39 | Emergency (ER) | payer MEDICARE ==
[~2020-06-20] VITALS: Ht 170.1 cm; Wt 49.9 kg
[~2020-06-20 23:39] MED LIST changes: +CILOXAN 5 ML5 ML OPH
== END 2020-06-21 01:22 | disposition other institution (70) ==
LOC: ED 23:39
DX: S02.2XXA Fracture of nasal bones, initial encounter for closed fracture (principal); S80.212A Abrasion, left knee, initial encounter; S80.211A Abrasion, right knee, initial encounter; S09.90XA Unspecified injury of head, initial encounter; Z88.8 Allergy status to other drugs, medicaments and biological substances; Z79.899 Other long term (current) drug therapy; W19.XXXA Unspecified fall, initial encounter; Y93.89 Activity, other specified; Y92.89 Other specified places as the place of occurrence of the external cause; Y99.8 Other external cause status

== ENCOUNTER 2020-08-03 20:10 | Emergency (ER) | payer MEDICARE ==
[~2020-08-03] VITALS: Ht 167.6 cm; Wt 56.7 kg
== END 2020-08-04 00:05 | disposition short-term general hospital (02) ==
LOC: ED 20:10
DX: S01.81XA Laceration without foreign body of other part of head, initial encounter (principal); S02.2XXA Fracture of nasal bones, initial encounter for closed fracture; S09.90XA Unspecified injury of head, initial encounter; Z79.82 Long term (current) use of aspirin; Z79.899 Other long term (current) drug therapy; Z79.2 Long term (current) use of antibiotics; W19.XXXA Unspecified fall, initial encounter; Y93.89 Activity, other specified; Y92.89 Other specified places as the place of occurrence of the external cause; Y99.8 Other external cause status